=== PATIENT | female | born 1960 | race Caucasian/White ===

== ENCOUNTER 2016-05-04 11:02 | Emergency (ER) | payer MEDICAID, OTHER ==
[2016-05-04 11:14] VITALS: BMI 33.3
[2016-05-04 11:18] VITALS: O2SAT 98
--- NOTE | 2016-05-04 11:39 | C.PDOC ---
History Of Present Illness 55 y/o female is sent to the emergency department from her doctor's office for blood sugar "over 500." Patient states her only complaint is "dry mouth." She denies any abdominal pain, chest pain, shortness of breath, dizziness, fever, or other complaints. Patient is adamant she has been taking all her medications but states she has been in a very stressful situation at home. Time Seen by Provider: 05/04/16 11:35 Chief Complaint (Nursing): High Blood Sugar History Per: Patient History/Exam Limitations: no limitations Onset/Duration Of Symptoms: Unknown Current Symptoms Are (Timing): Still Present Recent travel outside of the [place]: No Past Medical History Reviewed: Historical Data, Nursing Documentation, Vital Signs Vital Signs: Last Vital Signs Temp 97.6 F 05/04/16 15:36 Pulse 63 05/04/16 15:36 Resp 16 05/04/16 15:36 BP 111/71 05/04/16 15:36 Pulse Ox 98 05/04/16 15:36 - Medical History PMH: Anxiety, Depression, Diabetes (type II), Hypercholesterolemia Surgical History: Cholecystectomy - [facility] Procedures GROUP PSYCHOTHERAPY (12/26/15) INDIVID PSYCHOTHERAP NEC (07/03/13) INDIVIDUAL PSYCHOTHERAPY, COGNITIVE-BEHAVIORAL (12/26/15) INJECT/INFUSE NEC (08/29/13) OTHER GROUP THERAPY (07/03/13) Family History: States: No Known Family Hx - Social History Hx Tobacco Use: No Hx Alcohol Use: No Hx Substance Use: No - Immunization History Hx Tetanus Toxoid Vaccination: No Hx Influenza Vaccination: No Hx Pneumococcal Vaccination: No Review Of Systems Except As Marked, All Systems Reviewed And Found Negative. Constitutional: Positive for: Other (blood sugar "over 500"). Negative for: Fever Cardiovascular: Negative for: Chest Pain Respiratory: Negative for: Shortness of Breath Gastrointestinal: Negative for: Abdominal Pain Neurological: Negative for: Dizziness Physical Exam - Physical Exam Appears: Non-toxic, No Acute Distress Skin: Normal Color, Warm, Dry Head: Atraumatic, Normacephalic Eye(s): bilateral: Normal Inspection, PERRL Neck: Normal ROM, Supple Chest: Symmetrical Cardiovascular: Rhythm Regular Respiratory: Normal Breath Sounds, No Rales, No Rhonchi, No Wheezing Gastrointestinal/Abdominal: Normal Exam, Soft, No Tenderness Back: Normal Inspection Extremity: Normal ROM, No Swelling Neurological/Psych: Oriented x3, Normal Speech, Normal Cognition ED Course And Treatment - Laboratory Results Result Diagrams: 05/04/16 12:08 05/04/16 12:08 O2 Sat by Pulse Oximetry: 98 (ra) Pulse Ox Interpretation: Normal Progress Note: On arrival to the emergency department patient's blood sugar registers over 400. Blood Work and Urinalysis were ordered. Patient treated with 8 units of Insulin and IV Fluids. Labs do not indicated DKA. Repeat testing of patient's blood sugar shows decrease to 204. On reevaluation patient is resting comfortably and in no acute distress. Continues to deny any complaints. Patient advised to follow up with PMD and return for any new or concerning symptoms. Disposition - Disposition Disposition: HOME/ ROUTINE Disposition Time: 15:24 Condition: IMPROVED Additional Instructions: Follow up with your PMD within 1-2 days. Return to ED if feel worse. Instructions: Diabetes Mellitus Type 1 in Adults (ED) - Clinical Impression Clinical Impression: Hyperglycemia - PA / REFUELER / Resident Statement MD/DO has reviewed & agrees with the documentation as recorded. - Scribe Statement The provider has reviewed the documentation as recorded by the Scribe (Dyan Farley) All medical record entries made by the Scribe were at my direction and personally dictated by me. I have reviewed the chart and agree that the record accurately reflects my personal performance of the history, physical exam, medical decision making, and the department course for this patient. I have also personally directed, reviewed, and agree with the discharge instructions and disposition.
[2016-05-04] MEDS ORDERED: Sodium Chloride 0.9% 1,000 ML IV STA ×2 (11:57→14:06)
[2016-05-04] MEDS ORDERED: Sodium Chloride 0.9% 1,000 ML ONE ×2 (12:07→14:14)
[2016-05-04 12:13] LABS: BASO % 0.8 % (0.0-2.0); EOS # 0.2 K/uL (0.0-0.7); LYMPH # 1.7 K/uL (1.0-4.3); LYMPH % 43.9 % (20.0-40.0); MEAN CELL VOLUME 80.3 fL (81.0-99.0); MEAN CORPUSCULAR HEMOGLOBIN 26.6 pg (27.0-31.0); MEAN CORPUSCULAR HGB CONC 33.1 g/dL (33.0-37.0); MEAN PLATELET VOLUME 8.5 fL (7.2-11.7); MONO # 0.3 K/uL (0.0-0.8); NRBC % 0.1 % (0.0-2.0); RED CELL DISTRIBUTION WIDTH 12.2 % (11.5-14.5); WHITE BLOOD COUNT 3.9 K/uL (4.8-10.8)
[2016-05-04 12:21] LABS: CHLORIDE 96 mmol/L (98-107); POTASSIUM 3.6 mmol/L (3.6-5.2); SODIUM 134 mmol/L (132-148)
[2016-05-04 12:23] LABS: ALB/GLOB RATIO 1.3 (1.0-2.1); ALKALINE PHOSPHATASE 120 U/L (38-126); AST/SGOT 18 U/L (14-36); BILIRUBIN,TOTAL 0.4 mg/dL (0.2-1.3); CARBON DIOXIDE 23 mmol/L (22-30); GFR AFRICAN-AMERICAN > 60; TOTAL PROTEIN 6.6 g/dL (6.3-8.3)
[2016-05-04 12:24] LABS: VENOUS BLOOD GAS BASE EXCESS -1.3 mmol/L (0.0-2.0); VENOUS BLOOD GAS PCO2 40 mmHg (40-60); VENOUS BLOOD PH 7.38 (7.32-7.43)
[2016-05-04 12:24] LABS: ALT/SGPT 20 U/L (9-52); BLOOD UREA NITROGEN 10 mg/dL (7-17); CALCIUM 9.1 mg/dl (8.6-10.4)
[2016-05-04 12:37] LABS: RBC URINE 2 /hpf (0-3); URINE BILIRUBIN NEGATIVE (NEGATIVE); URINE BLOOD NEGATIVE (NEGATIVE); URINE COLOR Straw (YELLOW); URINE GLUCOSE (UA) 3+ mg/dL (Normal); URINE KETONE NEGATIVE (NEGATIVE); URINE LEUKOCYTE ESTERASE NEG Leu/uL (Negative); URINE PROTEIN NEGATIVE (NEGATIVE); URINE UROBILINOGEN NORMAL mg/dL (0.2-1.0); WBC URINE 1 /hpf (0-5)
[2016-05-04 12:44] LABS: GLUCOSE,RANDOM 431 mg/dL (65-105)
[2016-05-04] MEDS ORDERED: (Novolin R) Insulin Human Regular 100 units/ml vial SC STA (12:46)
[2016-05-04] MEDS ORDERED: (Novolin R) Insulin Human Regular 100 units/ml vial ONE (13:02)
[2016-05-04 15:37] VITALS: BP 111/71; PULSE 63; RESP 16; TEMP 97.6
== END 2016-05-04 15:38 | disposition home or self-care (01) ==
LOC: C.ER 11:02
DX: E11.65 Type 2 diabetes mellitus with hyperglycemia (principal)
CPT/HCPCS: 80053; 81001; 82009; 82803; 82948; 85025; 96360; 96361; 99285; J7040

== ENCOUNTER 2016-09-08 20:53 | Emergency (ER) | payer MEDICAID, OTHER ==
[2016-09-08 20:53] VITALS: BMI 33.3
[2016-09-08 21:15] VITALS: RESP 18; O2SAT 96
[2016-09-08] MEDS ORDERED: (Novolin R) Insulin Human Regular 100 units/ml vial IV STA (21:44)
[2016-09-08] MEDS ORDERED: Sodium Chloride 0.9% 1,000 ML IV ONE (21:44)
[2016-09-08 22:04] LABS: BASO % 0.8 % (0.0-2.0); EOS # 0.2 K/uL (0.0-0.7); EOS % 4.7 % (0.0-4.0); HEMOGLOBIN 13.9 g/dL (11.0-16.0); LYMPH # 2.4 K/uL (1.0-4.3); LYMPH % 51.6 % (20.0-40.0); MEAN CELL VOLUME 81.7 fL (81.0-99.0); MEAN CORPUSCULAR HEMOGLOBIN 27.3 pg (27.0-31.0); MEAN CORPUSCULAR HGB CONC 33.4 g/dL (33.0-37.0); MONO # 0.4 K/uL (0.0-0.8); MONO % 8.1 % (0.0-10.0); NEUT # 1.6 K/uL (1.8-7.0); NEUT % 34.8 % (50.0-75.0); NRBC % 0.1 % (0.0-2.0); RBC 5.09 Mil/uL (3.80-5.20); RED CELL DISTRIBUTION WIDTH 12.7 % (11.5-14.5); WHITE BLOOD COUNT 4.7 K/uL (4.8-10.8)
[2016-09-08 22:07] LABS: SQUAMOUS EPITHIAL 1 /hpf (0-5); URINE BACTERIA RARE (<OCC); URINE BILIRUBIN NEGATIVE (NEGATIVE); URINE BLOOD NEGATIVE (NEGATIVE); URINE CLARITY Clear (Clear); URINE COLOR Straw (YELLOW); URINE GLUCOSE (UA) 3+ mg/dL (Normal); URINE LEUKOCYTE ESTERASE NEG Leu/uL (Negative); URINE NITRATE NEGATIVE (NEGATIVE); URINE PROTEIN NEGATIVE (NEGATIVE)
[2016-09-08] MEDS ORDERED: (Novolin R) Insulin Human Regular 100 units/ml vial ONE (22:10)
[2016-09-08] MEDS ORDERED: Sodium Chloride 0.9% 1,000 ML ONE (22:10)
[2016-09-08 22:12] LABS: ALBUMIN 3.4 g/dL (3.5-5.0)
[2016-09-08 22:15] LABS: ALB/GLOB RATIO 1.3 (1.0-2.1); ALT/SGPT 24 U/L (9-52); AST/SGOT 17 U/L (14-36); BLOOD UREA NITROGEN 15 mg/dL (7-17); GFR AFRICAN-AMERICAN > 60; GFR NON-AFRICAN AMERICAN > 60
[2016-09-08 22:16] LABS: CALCIUM 8.4 mg/dl (8.6-10.4)
--- NOTE | 2016-09-08 23:09 | C.PDOC ---
History Of Present Illness 55 year old female who presents to the ER with a complaint of feeling lethargic and tired. As per daughter, patient has poorly controlled blood sugar at home; she is requesting to have her mother placed on a new insulin regiment. Denies nausea, vomiting, diarrhea, SOB, or chest pain. Time Seen by Provider: 09/08/16 21:38 Chief Complaint (Nursing): Weakness/Neurological Deficit History Per: Patient History/Exam Limitations: no limitations Onset/Duration Of Symptoms: Hrs Current Symptoms Are (Timing): Still Present Activity At Onset Of Symptoms: Other (Not known) Seizure Or Post-ictal Symptoms: None Possible Causative Factor(s): Other (Uncontrolled diabetes) Fall Associated With With Symptoms: No Recent travel outside of the [place]: No - Symptoms Of CVA Associated Symptoms: denies: Impaired Speech, Seizure Activity, New Vision Deficit(Left), New Vision Deficit(Right), Decreased Ability To Walk, New Confusion Past Medical History Reviewed: Historical Data, Nursing Documentation, Vital Signs Vital Signs: Last Vital Signs Temp 98.4 F 09/08/16 23:23 Pulse 71 09/08/16 23:23 Resp 18 09/08/16 23:23 BP 104/72 09/08/16 23:23 Pulse Ox 96 09/08/16 23:24 - Medical History PMH: Anxiety, Depression, Diabetes (type II), HTN, Hypercholesterolemia Surgical History: Cholecystectomy - [facility] Procedures GROUP PSYCHOTHERAPY (12/26/15) INDIVID PSYCHOTHERAP NEC (07/03/13) INDIVIDUAL PSYCHOTHERAPY, COGNITIVE-BEHAVIORAL (12/26/15) INJECT/INFUSE NEC (08/29/13) OTHER GROUP THERAPY (07/03/13) Family History: States: Unknown Family Hx - Social History Hx Tobacco Use: No Hx Alcohol Use: No Hx Substance Use: No - Immunization History Hx Tetanus Toxoid Vaccination: No Hx Influenza Vaccination: No Hx Pneumococcal Vaccination: No Review Of Systems Constitutional: Positive for: Weakness, Other (Polydipsia). Negative for: Weight loss Cardiovascular: Negative for: Chest Pain Respiratory: Negative for: Shortness of Breath Gastrointestinal: Negative for: Nausea, Vomiting, Diarrhea Genitourinary: Positive for: Frequency Neurological: Negative for: Weakness, Numbness Physical Exam - Physical Exam Appears: Non-toxic, No Acute Distress Skin: Normal Color, Warm, Dry Head: Atraumatic, Normacephalic Oral Mucosa: Dry Chest: Symmetrical, No Tenderness Cardiovascular: Rhythm Regular, No Murmur Respiratory: Normal Breath Sounds, No Rales, No Rhonchi, No Wheezing Gastrointestinal/Abdominal: Soft, No Tenderness Neurological/Psych: Oriented x3, Normal Speech, Normal Cognition ED Course And Treatment - Laboratory Results Result Diagrams: 09/08/16 21:58 09/08/16 21:58 Lab Interpretation: Abnormal (hgb A1C 12.7 H, UA neg, ketones neg.) ECG: Interpreted By Me, Viewed By Me ECG Rhythm: Sinus Rhythm ECG Interpretation: Normal Rate From EC O2 Sat by Pulse Oximetry: 96 (Room air) Pulse Ox Interpretation: Normal Progress Note: insulin 10 IV and IVF's, recheck FS 169, pt feels better, hungry wants to eat, food permitted. Medical Decision Making Medical Decision Making: very poorly controlled DM A1C 12.7 c/w consistently elev glu approx 400's, explaining persistent polyuria polydypsia no sig weight loss Daughter @ bedside speaks for the pt pt with many pior overdoses, mental illness, and poor insight into her DM, and non-compliance with DM meds/regimen/diet is concerning. outpatient f/u with Dr. Gallegos Disposition Doctor Will See Patient In The: Office Counseled Patient/Family Regarding: Studies Performed, Diagnosis - Disposition Referrals: Kermit Gallegos DO [Staff Provider] - Disposition: HOME/ ROUTINE Disposition Time: 23:15 Condition: GOOD Additional Instructions: continue daily finger sticks and please adhere to a diabetic diet and insulin regimen Follow-up with Dr. Gallegos to consider medication changes Hgb A1C: 12.7 Instructions: Diabetes Mellitus Type 1 in Adults (ED) Forms: [email or web address] (Egyptian) - Clinical Impression Clinical Impression: Uncontrolled diabetes mellitus
[2016-09-08 23:23] VITALS: BP 104/72; PULSE 71; TEMP 98.4
--- NOTE | 2016-09-11 13:09 | CARD ---
APPROVED REPORT EKG Measurement Heart [id number] <Conclusion> Normal sinus rhythm Anteroseptal infarct, age undetermined Abnormal ECG
== END 2016-09-08 23:27 | disposition home or self-care (01) ==
LOC: C.ER 20:53
DX: E11.65 Type 2 diabetes mellitus with hyperglycemia (principal)
CPT/HCPCS: 80053; 81001; 82009; 82948; 83036; 85025; 93005; 96360; 99285; J7040

== ENCOUNTER 2016-09-25 09:37 | Emergency (ER) | payer OTHER ==
[2016-09-25 09:52] VITALS: BP 111/78; PULSE 75; RESP 18; TEMP 97.3; O2SAT 97
[2016-09-25 09:53] VITALS: BMI 32.3
--- NOTE | 2016-09-25 10:32 | C.PDOC ---
History Of Present Illness 55 y/o male presents to ED with complaints of new onset right foot pain since this morning. Patient states pain is at bottom of foot radiating to front of leg worse when touching, bearing weight and with flexion. Patient reports weight bearing and denies recent prolonged than usual walking or trauma. Patient denies numbness, weakness, tingling or any other complaints at this time. NEW ONSET R FOOT PAIN SINCE THIS MORNING. BOTTOM OF FOOT, RADIATION TO FRONT OF LEG. WORSE W FOOT FLEXION, WT BEAR. DENIES RECENT PROLONGED THAN USUAL WALKING, TRAUMA. PAIN WORSE W TOUCHING BOTTOM OF FOOT, WT BEAR. NO OTHER ASSOC SX EXAM MOD DIST NONTOXIC EXT R FOOT +TEND PLANTAR ARCH AREA. MIN LOCAL SWELL. NO JOINT TEND, SWELL. AROM MTP JOINT. SKIN NEG Time Seen by Provider: 09/25/16 10:26 Chief Complaint (Nursing): Lower Extremity Problem/Injury History Per: Patient History/Exam Limitations: no limitations Onset/Duration Of Symptoms: Days Current Symptoms Are (Timing): Still Present Past Medical History Reviewed: Historical Data, Nursing Documentation, Vital Signs Vital Signs: Last Vital Signs Temp 97.3 F L 09/25/16 09:51 Pulse 75 09/25/16 09:51 Resp 18 09/25/16 09:51 BP 111/78 09/25/16 09:51 Pulse Ox 97 09/25/16 10:36 - Medical History PMH: Anxiety, Depression, Diabetes (type II), HTN, Hypercholesterolemia Surgical History: Cholecystectomy - [facility] Procedures GROUP PSYCHOTHERAPY (12/26/15) INDIVID PSYCHOTHERAP NEC (07/03/13) INDIVIDUAL PSYCHOTHERAPY, COGNITIVE-BEHAVIORAL (12/26/15) INJECT/INFUSE NEC (08/29/13) OTHER GROUP THERAPY (07/03/13) Family History: States: No Known Family Hx - Social History Hx Tobacco Use: No Hx Alcohol Use: No Hx Substance Use: No - Immunization History Hx Tetanus Toxoid Vaccination: No Hx Influenza Vaccination: No Hx Pneumococcal Vaccination: No Review Of Systems Except As Marked, All Systems Reviewed And Found Negative. Musculoskeletal: Positive for: Leg Pain, Foot Pain Skin: Negative for: Rash Neurological: Negative for: Weakness, Numbness Physical Exam - Physical Exam Appears: Non-toxic, Other (Moderate distress) Skin: Normal Color, Warm, No Rash Extremity: Tenderness, Swelling (Minimal localized swelling), Other (No joint tenderness or swelling, AROM to MTP joint) ED Course And Treatment O2 Sat by Pulse Oximetry: 97 (RA) Pulse Ox Interpretation: Normal Disposition Counseled Patient/Family Regarding: Diagnosis, Need For Followup, Rx Given - Disposition [facility]errals[facility]Outside] [facility] [Outside] [facility]iat[facility] [Outside] Disposition: HOME/ ROUTINE Disposition Time: 10:36 Condition: IMPROVED Additional Instructions: There are many methods you can try to relieve the heel pain of plantar fasciitis. Even though their effectiveness has not been proved in scientific studies, these methods, used alone or in combination, work for most people.2 Rest your feet. Limit or, if possible, stop daily activities that are causing your heel pain. Try to avoid running or walking on hard surfaces, such as concrete. To reduce inflammation and relieve pain, put ice on your heel. You can also try a nonsteroidal anti-inflammatory drug (NSAID) such as ibuprofen (Advil or Motrin , for example) or naproxen (Aleve, for example). NSAIDs come in pills and in a cream that you rub over the sore area. Wear shoes with good shock absorption and the right arch support for your foot. Athletic shoes or shoes with a well-cushioned sole are usually good choices. Try heel cups or shoe inserts (orthotics [email or web address]) to help cushion your heel. You can buy these at many athletic shoe stores and drugstores. Use them in both shoes, even if only one foot hurts. Put on your shoes as soon as you get out of bed. Going barefoot or wearing slippers may make your pain worse. Do simple exercises such as toe stretches [email or web address], calf stretches [email or web address] , and towel stretches [email or web address] several times a day, especially when you first get up in the morning. These can help your ligament become more flexible and strengthen the muscles that support your arch. (For towel stretches, you pull on both ends of a rolled towel that you place under the ball of your foot.) Prescriptions: Acetaminophen [Tylenol Extra Strength] 2 tab PO Q6 #30 tablet Ibuprofen [Motrin] 600 mg PO Q6 #30 tab Instructions: Plantar Fasciitis (ED) Forms: [employer] (Belarusian) - Clinical Impression Clinical Impression: Plantar fasciitis - Scribe Statement The provider has reviewed the documentation as recorded by the Linnette Ramos All medical record entries made by the Deonibisai were at my direction and personally dictated by me. I have reviewed the chart and agree that the record accurately reflects my personal performance of the history, physical exam, medical decision making, and the department course for this patient. I have also personally directed, reviewed, and agree with the discharge instructions and disposition. Orthopedic Care - Ambulation Aids Ambulation Aids: Adult Crutches
== END 2016-09-25 11:10 | disposition home or self-care (01) ==
LOC: C.ER 09:37
DX: M72.2 Plantar fascial fibromatosis (principal)
CPT/HCPCS: 97116; 97161; 99283; G8978; G8979; G8980

== ENCOUNTER 2016-11-08 16:21 | Emergency (ER) | payer OTHER ==
[2016-11-08 16:22] VITALS: BMI 32.3
[2016-11-08 16:32] VITALS: BP 105/72; PULSE 90; RESP 20; TEMP 98.7; O2SAT 97
[2016-11-08] MEDS ORDERED: Amoxicillin-Clav 875-125 mg Tab PO STA (17:17)
[2016-11-08] MEDS ORDERED: Amoxicillin-Clav 875-125 mg Tab PO ONE (17:23)
--- NOTE | 2016-11-08 18:54 | C.PDOC ---
History Of Present Illness 56 y/o female presents to ED with right ear infection for "couple of days" and states fluid is coming out of ear. Patient reports she stuck toothpick to make it feel better and "did not work" and denies blood from ear. No other complaints at this time. Time Seen by Provider: 11/08/16 17:07 Chief Complaint (Nursing): ENT Problem History Per: Patient History/Exam Limitations: None Onset/Duration Of Symptoms: Days Current Symptoms Are (Timing): Still Present Past Medical History Reviewed: Historical Data, Nursing Documentation, Vital Signs Vital Signs: Last Vital Signs Temp 98.7 F 11/08/16 16:30 Pulse 90 11/08/16 16:30 Resp 20 11/08/16 16:30 BP 105/72 11/08/16 16:30 Pulse Ox 97 11/08/16 18:56 - Medical History PMH: Anxiety, Depression, Diabetes (type II), HTN, Hypercholesterolemia Surgical History: Cholecystectomy - [facility] Procedures GROUP PSYCHOTHERAPY (12/26/15) INDIVID PSYCHOTHERAP NEC (07/03/13) INDIVIDUAL PSYCHOTHERAPY, COGNITIVE-BEHAVIORAL (12/26/15) INJECT/INFUSE NEC (08/29/13) OTHER GROUP THERAPY (07/03/13) Family History: States: No Known Family Hx - Social History Hx Tobacco Use: No Hx Alcohol Use: No Hx Substance Use: No - Immunization History Hx Tetanus Toxoid Vaccination: No Hx Influenza Vaccination: No Hx Pneumococcal Vaccination: No Review Of Systems Except As Marked, All Systems Reviewed And Found Negative. Constitutional: Negative for: Fever, Chills ENT: Positive for: Ear Pain Cardiovascular: Negative for: Chest Pain Respiratory: Negative for: Shortness of Breath Gastrointestinal: Negative for: Nausea, Vomiting Skin: Negative for: Rash Physical Exam - Physical Exam Appears: Non-toxic, No Acute Distress Skin: Normal Color, Warm, Dry, No Rash Head: Atraumatic, Normacephalic Eye(s): bilateral: Normal Inspection Ear(s): Left: Normal, Right: TM Erythema, TM Dull, Other (Ear pain with tugging of pinna) Nose: Normal Oral Mucosa: Moist Throat: Normal, No Erythema Neck: Normal ROM, Supple Chest: Symmetrical Cardiovascular: Rhythm Regular Respiratory: Normal Breath Sounds, No Rales, No Rhonchi, No Wheezing Neurological/Psych: Oriented x3 ED Course And Treatment O2 Sat by Pulse Oximetry: 97 (RA) Pulse Ox Interpretation: Normal Disposition - Disposition Disposition: HOME/ ROUTINE Disposition Time: 17:15 Condition: GOOD Additional Instructions: Thank you for letting us take care of you today. Your provider was Dr. Saldivar. You were treated for an ear infection. The emergency medical care you received today was directed at your acute symptoms. If you were prescribed any medication, please fill it and take as directed. It may take several days for your symptoms to resolve. Return to the Emergency Department if your symptoms worsen, do not improve, or if you have any other problems. Please contact your doctor or call one of the physicians/clinics you have been referred to that are listed on the Patient Visit Information form that is included in your discharge packet. Bring any paperwork you were given at discharge with you along with any medications you are taking to your follow up visit. Our treatment cannot replace ongoing medical care by a primary care provider (PCP) outside of the emergency department. Thank you for allowing the [facility] team to be part of your care today. Follow up with your doctor in 2-3 days for re-evaluation and further management. Prescriptions: Amoxicillin/Clavulanate [Augmentin 875 MG-125 MG] 1 tab PO BID #14 tab Ibuprofen [Motrin] 600 mg PO Q6 PRN #20 tab PRN Reason: Pain, Moderate (4-7) Instructions: Otitis Media (ED) Forms: [employer] (Greenlandic) - Clinical Impression Clinical Impression: Otitis media, Otitis externa - Scribe Statement The provider has reviewed the documentation as recorded by the Linnette Ramos All medical record entries made by the Linnette were at my direction and personally dictated by me. I have reviewed the chart and agree that the record accurately reflects my personal performance of the history, physical exam, medical decision making, and the department course for this patient. I have also personally directed, reviewed, and agree with the discharge instructions and disposition.
== END 2016-11-08 17:24 | disposition home or self-care (01) ==
LOC: C.ER 16:21
DX: H60.91 Unspecified otitis externa, right ear (principal); H66.91 Otitis media, unspecified, right ear; Z87.891 Personal history of nicotine dependence

== ENCOUNTER 2016-12-22 16:13 | Emergency (ER) | payer OTHER ==
[2016-12-22 16:24] VITALS: BMI 27.3
[2016-12-22 16:38] VITALS: BP 121/80; PULSE 72; RESP 20; TEMP 97.8; O2SAT 96
[2016-12-22] MEDS ORDERED: Nystatin 100,000 Units/gm Cream(15 gm) TOP STA (16:48)
[2016-12-22 17:03] LABS: RBC URINE 10 /hpf (0-3); URINE BACTERIA OCC (<OCC); URINE BILIRUBIN NEGATIVE (NEGATIVE); URINE BLOOD 1+ (NEGATIVE); URINE COLOR Yellow (YELLOW); URINE GLUCOSE (UA) 3+ mg/dL (Normal); URINE KETONE TRACE mg/dL (NEGATIVE); URINE LEUKOCYTE ESTERASE 3+ Leu/uL (Negative); URINE PROTEIN NEGATIVE (NEGATIVE); URINE UROBILINOGEN NORMAL mg/dL (0.2-1.0); WBC URINE 43 /hpf (0-5)
--- NOTE | 2016-12-22 17:14 | C.PDOC ---
History Of Present Illness 56 year old female presents to the ED for evaluation of an itchy, burning rash to her genital area which began 3 days ago. Patient reports experiencing similar symptoms previously, states she had a fungal infection. Patient has tried using topical antibiotic cream without significant relief. She denies fever/chills, dysuria, vaginal discharge/bleeding, or abdominal pain. Time Seen by Provider: 12/22/16 16:28 Chief Complaint (Nursing): Female Genitourinary History Per: Patient History/Exam Limitations: no limitations Onset/Duration Of Symptoms: Days (3) Current Symptoms Are (Timing): Still Present Severity: Moderate Quality Of Discomfort: Burning, Other (itching ) Associated Symptoms: denies: Fever, Chills, Urinary Symptoms Additional History Per: Patient Past Medical History Reviewed: Historical Data, Nursing Documentation, Vital Signs Vital Signs: Last Vital Signs Temp 97.8 F 12/22/16 16:36 Pulse 72 12/22/16 16:36 Resp 20 12/22/16 16:36 BP 121/80 12/22/16 16:36 Pulse Ox 96 12/23/16 00:15 - Medical History PMH: Anxiety, Depression, Diabetes (type II), HTN, Hypercholesterolemia Surgical History: Cholecystectomy - [facility] Procedures GROUP PSYCHOTHERAPY (12/26/15) INDIVID PSYCHOTHERAP NEC (07/03/13) INDIVIDUAL PSYCHOTHERAPY, COGNITIVE-BEHAVIORAL (12/26/15) INJECT/INFUSE NEC (08/29/13) OTHER GROUP THERAPY (07/03/13) Family History: States: No Known Family Hx - Social History Hx Tobacco Use: No Hx Alcohol Use: No Hx Substance Use: No - Immunization History Hx Tetanus Toxoid Vaccination: No Hx Influenza Vaccination: No Hx Pneumococcal Vaccination: No Review Of Systems Except As Marked, All Systems Reviewed And Found Negative. Constitutional: Negative for: Fever, Chills Cardiovascular: Negative for: Chest Pain Respiratory: Negative for: Shortness of Breath Gastrointestinal: Negative for: Nausea, Vomiting, Abdominal Pain, Diarrhea Genitourinary: Negative for: Dysuria, Hematuria, Vaginal Discharge, Vaginal Bleeding Skin: Positive for: Rash (itchy, burning rash to genital area, extending to rectum ) Physical Exam - Physical Exam Appears: Well, Non-toxic, Other (mildly uncomfortable) Skin: Normal Color, Warm, Dry Oral Mucosa: Moist Neck: Supple Cardiovascular: Rhythm Regular, No Murmur Respiratory: Normal Breath Sounds, No Rales, No Rhonchi, No Wheezing Gastrointestinal/Abdominal: Normal Exam, Bowel Sounds, Soft, No Tenderness Pelvic: No Vaginal Discharge, Other (erythematous & raised well demarcated rash on vulva that extends into gluteal region. fungal in appearance, (+) mild labial swelling, no fluctuance/induration, no vesicular lesions. ) Extremity: Normal ROM Neurological/Psych: Oriented x3 Gait: Steady ED Course And Treatment O2 Sat by Pulse Oximetry: 96 (on RA) Pulse Ox Interpretation: Normal Progress Note: UA ordered and reviewed. Patient given PO Motrin and topical nystatin cream applied to area by nurse. She was given Rxs for Naprosyn and Nystatin, and instructed to follow up with PMD in 1-2 days. She understands she should return to ED if symptoms worsen. Disposition Counseled Patient/Family Regarding: Studies Performed, Diagnosis, Need For Followup, Rx Given - Disposition Referrals: Kermit Gallegos DO [Staff Provider] - Disposition: HOME/ ROUTINE Disposition Time: 17:30 Condition: STABLE Additional Instructions: FOLLOW UP WITH YOUR DOCTOR IN 1-2 DAYS USE MEDICATION DIRECTED RETURN TO EMERGENCY ROOM IF SYMPTOMS WORSEN Prescriptions: Naproxen 375 mg PO BID PRN #20 tablet PRN Reason: pain Nystatin [Mycostatin Cream] 1 appl TP TID #1 tube Instructions: Marcelo Itch (ED) Forms: [email or web address] (Icelandic) Print Language: SINHALA - POA Present On Arrival: None - Clinical Impression Clinical Impression: Tinea cruris - Scribe Statement The provider has reviewed the documentation as recorded by the Deonibe (Keyla Mart) Provider Attestation: All medical record entries made by the Deonibisai were at my direction and personally dictated by me. I have reviewed the chart and agree that the record accurately reflects my personal performance of the history, physical exam, medical decision making, and the department course for this patient. I have also personally directed, reviewed, and agree with the discharge instructions and disposition.
== END 2016-12-22 17:50 | disposition home or self-care (01) ==
LOC: C.ER 16:13
DX: B35.6 Tinea cruris (principal); E11.9 Type 2 diabetes mellitus without complications; E78.00 Pure hypercholesterolemia, unspecified; I10 Essential (primary) hypertension

== ENCOUNTER 2016-12-24 23:32 | Emergency (ER) | payer SELFPAY ==
[2016-12-24 23:32] VITALS: BMI 27.3
[2016-12-24 23:39] VITALS: BP 146/87; PULSE 89; RESP 16; TEMP 97.1; O2SAT 98
--- NOTE | 2016-12-25 00:40 | C.PDOC ---
History Of Present Illness 56 y/o female c/o vaginal itching that has been worsening over the past 2 days. Patient was seen in the ER 3 days ago for jock itch and was prescribed Nystatin cream with no relief but now pt states itching mostly to vaginal area. Denies vaginal discharge, dysuria, fever, chills, abdominal pain, or any other complaints. Time Seen by Provider: 12/24/16 23:56 Chief Complaint (Nursing): Abnormal Skin Integrity History Per: Patient History/Exam Limitations: no limitations Onset/Duration Of Symptoms: Days (2) Current Symptoms Are (Timing): Still Present Quality Of Symptoms: Itching Severity: Mild Recent travel outside of the [place]: No Additional History Per: Patient Past Medical History Reviewed: Historical Data, Nursing Documentation, Vital Signs Vital Signs: Last Vital Signs Temp 97.1 F L 12/24/16 23:37 Pulse 89 12/24/16 23:37 Resp 16 12/24/16 23:37 BP 146/87 12/24/16 23:37 Pulse Ox 98 12/25/16 04:32 - Medical History PMH: Anxiety, Depression, Diabetes (type II), HTN, Hypercholesterolemia Denies: Chronic Kidney Disease Surgical History: Cholecystectomy - [facility] Procedures GROUP PSYCHOTHERAPY (12/26/15) INDIVID PSYCHOTHERAP NEC (07/03/13) INDIVIDUAL PSYCHOTHERAPY, COGNITIVE-BEHAVIORAL (12/26/15) INJECT/INFUSE NEC (08/29/13) OTHER GROUP THERAPY (07/03/13) Family History: States: Unknown Family Hx - Social History Hx Tobacco Use: No Hx Alcohol Use: No Hx Substance Use: No - Immunization History Hx Tetanus Toxoid Vaccination: No Hx Influenza Vaccination: No Hx Pneumococcal Vaccination: No Review Of Systems Except As Marked, All Systems Reviewed And Found Negative. Constitutional: Negative for: Fever, Chills Gastrointestinal: Negative for: Abdominal Pain Genitourinary: Positive for: Other (Vaginal itching). Negative for: Dysuria Physical Exam - Physical Exam Appears: Non-toxic, No Acute Distress Skin: Warm, Dry Head: Atraumatic, Normacephalic Eye(s): bilateral: Normal Inspection Gastrointestinal/Abdominal: Normal Exam Pelvic: Other (No rash to the perineal area. Minimal swelling and erythema of the vulvovaginal area with minimal thick white discharge.) Neurological/Psych: Oriented x3 ED Course And Treatment O2 Sat by Pulse Oximetry: 98 (RA) Pulse Ox Interpretation: Normal Progress Note: Benadryl Po and Diflucan PO given. Patient is resting comfortably, and is in no acute distress. Patient was instructed to follow up with physician/clinic in 1-2 days for further evaluation. Disposition Counseled Patient/Family Regarding: Diagnosis, Need For Followup, Rx Given - Disposition Referrals: Kermit Gallegos DO [Staff Provider] - Disposition: HOME/ ROUTINE Disposition Time: 00:36 Condition: STABLE Additional Instructions: May continue benadryl for itching Return to ER if worse Prescriptions: DiphenhydrAMINE [Benadryl] 25 mg PO QID #14 cap Instructions: Vaginitis (ED) Forms: [email or web address] (Yi) Print Language: [email or web address] - Clinical Impression Clinical Impression: Vaginitis and vulvovaginitis - Scribe Statement The provider has reviewed the documentation as recorded by the Scribe Sarah albert All medical record entries made by the Scribe were at my direction and personally dictated by me. I have reviewed the chart and agree that the record accurately reflects my personal performance of the history, physical exam, medical decision making, and the department course for this patient. I have also personally directed, reviewed, and agree with the discharge instructions and disposition.
== END 2016-12-25 00:50 | disposition home or self-care (01) ==
LOC: C.ER 23:32
DX: N76.0 Acute vaginitis (principal)

== ENCOUNTER 2017-01-27 19:05 | Emergency (ER) | payer SELFPAY ==
[2017-01-27 19:06] VITALS: BMI 27.3
[2017-01-27 19:20] VITALS: BP 120/79; PULSE 92; RESP 18; TEMP 98.7; O2SAT 99
--- NOTE | 2017-01-27 19:59 | C.PDOC ---
History Of Present Illness Janay Mariano is a 56 year old female, with a past medical history of hypertension and diabetes, who presents to the emergency department complaining of vaginal itching onset for the ast x2 months. Patient reports she was seen here in ER and given Rx but with no improvement. She comes in here today because she can't tolerate the itching. She denies any pain, bleeding, abdominal pain or dysuria. No further medical complaints. PMD: Kermit Gallegos Time Seen by Provider: 01/27/17 19:35 Chief Complaint (Nursing): Female Genitourinary History Per: Patient History/Exam Limitations: no limitations Onset/Duration Of Symptoms: Days (x2 months) Current Symptoms Are (Timing): Still Present Pain Scale Rating Of: 0 Quality Of Discomfort: Other (itching) Associated Symptoms: denies: Urinary Symptoms, Other (abdominal pain) Past Medical History Reviewed: Historical Data, Nursing Documentation, Vital Signs Vital Signs: Last Vital Signs Temp 98.7 F 01/27/17 19:15 Pulse 92 H 01/27/17 19:15 Resp 18 01/27/17 19:15 BP 120/79 01/27/17 19:15 Pulse Ox 99 01/27/17 21:26 - Medical History PMH: Anxiety, Depression, Diabetes (type II), HTN, Hypercholesterolemia Denies: Chronic Kidney Disease Surgical History: Cholecystectomy - [facility] Procedures GROUP PSYCHOTHERAPY (12/26/15) INDIVID PSYCHOTHERAP NEC (07/03/13) INDIVIDUAL PSYCHOTHERAPY, COGNITIVE-BEHAVIORAL (12/26/15) INJECT/INFUSE NEC (08/29/13) OTHER GROUP THERAPY (07/03/13) Family History: States: Unknown Family Hx - Social History Hx Tobacco Use: No Hx Alcohol Use: No Hx Substance Use: No - Immunization History Hx Tetanus Toxoid Vaccination: No Hx Influenza Vaccination: No Hx Pneumococcal Vaccination: No Review Of Systems Except As Marked, All Systems Reviewed And Found Negative. Gastrointestinal: Negative for: Abdominal Pain Genitourinary: Positive for: Other (vaginal itching). Negative for: Dysuria, Vaginal Bleeding (or pain) Physical Exam - Physical Exam Appears: Well, No Acute Distress Skin: Normal Color, Warm, Dry Head: Atraumatic, Normacephalic Eye(s): bilateral: Normal Inspection, PERRL, EOMI Oral Mucosa: Moist Throat: Normal Neck: Normal, Normal ROM, Supple Cardiovascular: Rhythm Regular, No Friction Rub, No Murmur Respiratory: Normal Breath Sounds, No Accessory Muscle Use Gastrointestinal/Abdominal: Normal Exam, Soft, No Tenderness Back: Normal Inspection, No CVA Tenderness Pelvic: No Normal External Exam (excoriations and red irritation. ), No Vaginal Bleeding, Vaginal Discharge (white cottage cheese like), No Cervical Motion Tenderness, No Adnexal Tenderness, Other (Hand Cooper Helper: Ro LEZAMA) Extremity: Normal ROM, No Pedal Edema, No Deformity, No Swelling Neurological/Psych: Oriented x3, Normal Speech, Normal Motor Gait: Steady ED Course And Treatment O2 Sat by Pulse Oximetry: 99 (RA) Pulse Ox Interpretation: Normal Medical Decision Making Medical Decision Making: Initial Impression: vaginal itching Initial Plan: --Urine culture --HCG, Qualitative urine --Urinalysis UA is negative for UTI. Disposition - Disposition Referrals: Suni Fuentes MD [Staff Provider] - Disposition: HOME/ ROUTINE Disposition Time: 21:20 Condition: GOOD Additional Instructions: Follow up with the OBGYN within 1-2 days. return if worsened. Prescriptions: Fluconazole [Diflucan] 150 mg PO ONCE #2 tab hydrOXYzine HCl [Atarax] 25 mg PO Q6H #25 tab Instructions: Vulvovaginal Candidiasis (ED) Forms: [employer] (Mauritanian) - Clinical Impression Clinical Impression: Vulvovaginal candidiasis - Scribe Statement Mario Copeland All medical record entries made by the Scribe were at my direction and personally dictated by me. I have reviewed the chart and agree that the record accurately reflects my personal performance of the history, physical exam, medical decision making, and the department course for this patient. I have also personally directed, reviewed, and agree with the discharge instructions and disposition.
[2017-01-27 20:35] LABS: RBC URINE 9 /hpf (0-3); URINE BACTERIA RARE (<OCC); URINE BILIRUBIN NEGATIVE (NEGATIVE); URINE BLOOD 1+ (NEGATIVE); URINE COLOR Straw (YELLOW); URINE GLUCOSE (UA) 3+ mg/dL (Normal); URINE KETONE NEGATIVE (NEGATIVE); URINE LEUKOCYTE ESTERASE TRACE Leu/uL (Negative); URINE PROTEIN NEGATIVE (NEGATIVE); URINE UROBILINOGEN NORMAL mg/dL (0.2-1.0); WBC URINE 5 /hpf (0-5)
== END 2017-01-27 21:35 | disposition home or self-care (01) ==
LOC: SUPCPDRO 19:05 → C.ER 19:05
DX: B37.3 Candidiasis of vulva and vagina (principal)

== ENCOUNTER 2017-03-27 09:36 | Emergency (ER) | payer MEDICAID ==
[2017-03-27 10:09] VITALS: BMI 34.3
[2017-03-27 10:11] VITALS: TEMP 97.7
[2017-03-27] MEDS ORDERED: Naproxen 550 mg Tab PO STA (10:42)
[2017-03-27] MEDS ORDERED: Naproxen 550 mg Tab PO ONE (10:49)
--- NOTE | 2017-03-27 10:59 | C.PDOC ---
History Of Present Illness 56 year old female presents to the ER with a complaint of an initially itchy, now painful rash to the groin and buttock for the past 3 weeks. Patient states she used topical bacitracin, alcohol, and PO benadryl with no relief. Patient reports a Hx of diabetes and states she is complaint with her medications. Denies dysuria, fever, vaginal discharge, or vaginal bleeding. Time Seen by Provider: 03/27/17 10:21 Chief Complaint (Nursing): Female Genitourinary History Per: Patient History/Exam Limitations: no limitations Onset/Duration Of Symptoms: Days Current Symptoms Are (Timing): Still Present Quality Of Discomfort: "Pain" Recent travel outside of the [place]: No Abnormal Vaginal Bleeding: No Past Medical History Reviewed: Historical Data, Nursing Documentation, Vital Signs Vital Signs: Last Vital Signs Temp 97.7 F 03/27/17 10:09 Pulse 82 03/27/17 11:38 Resp 16 03/27/17 11:38 BP 138/85 03/27/17 11:38 Pulse Ox 98 03/27/17 11:38 - Medical History PMH: Anxiety, Depression, Diabetes (type II), HTN, Hypercholesterolemia Surgical History: Cholecystectomy - [facility] Procedures GROUP PSYCHOTHERAPY (12/26/15) INDIVID PSYCHOTHERAP NEC (07/03/13) INDIVIDUAL PSYCHOTHERAPY, COGNITIVE-BEHAVIORAL (12/26/15) INJECT/INFUSE NEC (08/29/13) OTHER GROUP THERAPY (07/03/13) Family History: States: Unknown Family Hx - Social History Hx Tobacco Use: No Hx Alcohol Use: No Hx Substance Use: No - Immunization History Hx Tetanus Toxoid Vaccination: No Hx Influenza Vaccination: No Hx Pneumococcal Vaccination: No Review Of Systems Except As Marked, All Systems Reviewed And Found Negative. Skin: Positive for: Rash (Painful to groin and buttock) Physical Exam - Physical Exam Appears: Non-toxic, Other (Uncomfortable) Skin: Warm, Dry Head: Atraumatic, Normacephalic Eye(s): bilateral: Normal Inspection Oral Mucosa: Moist Chest: Symmetrical, No Tenderness Cardiovascular: Rhythm Regular Respiratory: Normal Breath Sounds, No Rales, No Rhonchi, No Wheezing Gastrointestinal/Abdominal: Soft, No Tenderness Rectal: Other (Erythematous irritation to perianal, dry and scaly in appearance , well demarcated, non vesicular rash (fungal appearing)) Pelvic: Other (Erythematous irritation to labia, dry and scaly in appearance, well demarcated, non vesicular rash (fungal appearing)) Neurological/Psych: Oriented x3, Normal Speech ED Course And Treatment O2 Sat by Pulse Oximetry: 95 (Room air) Pulse Ox Interpretation: Normal Progress Note: Nystatin and naproxen administered. Patient instructed to follow up with PMD for further evaluation. Disposition Counseled Patient/Family Regarding: Diagnosis, Need For Followup, Rx Given - Disposition Referrals: [facility] [Outside] Disposition: HOME/ ROUTINE Disposition Time: 11:00 Condition: STABLE Additional Instructions: FOLLOW UP WITH YOUR DOCTOR OR CLINIC IN 1-2 DAYS USE MEDICATIONS DIRECTED KEEP AREA CLEAN AND DRY RETURN TO ER IF SYMPTOMS WORSEN Prescriptions: Naproxen 375 mg PO BID PRN #20 tablet PRN Reason: pain Nystatin [Mycostatin Cream] 1 appl TP TID #1 tube Instructions: Vulvovaginal Yeast Infection, Jock Itch (DC) Forms: [employer] (Urdu) Print Language: WOLOF - POA Present On Arrival: None - Clinical Impression Clinical Impression: Fungal infection of the groin - Scribe Statement The provider has reviewed the documentation as recorded by the Scribisai Olivera All medical record entries made by the Linnette were at my direction and personally dictated by me. I have reviewed the chart and agree that the record accurately reflects my personal performance of the history, physical exam, medical decision making, and the department course for this patient. I have also personally directed, reviewed, and agree with the discharge instructions and disposition.
[2017-03-27 11:38] VITALS: BP 138/85; PULSE 82; RESP 16
[2017-03-27 18:29] VITALS: O2SAT 95
== END 2017-03-27 11:38 | disposition home or self-care (01) ==
LOC: C.ER 09:36
DX: B35.6 Tinea cruris (principal)

== ENCOUNTER 2018-03-20 13:22 | Inpatient (IN) | payer MEDICAID, OTHER ==
[2018-03-20 13:22] VITALS: BMI 34.3
[2018-03-20 14:17] LABS: BASO % 1.4 % (0.0-2.0); EOS # 0.2 K/uL (0.0-0.7); EOS % 5.8 % (0.0-4.0); HEMOGLOBIN 14.2 g/dL (11.0-16.0); LYMPH # 1.8 K/uL (1.0-4.3); LYMPH % 53.2 % (20.0-40.0); MEAN CELL VOLUME 82.7 fL (81.0-99.0); MEAN CORPUSCULAR HEMOGLOBIN 27.2 pg (27.0-31.0); MEAN CORPUSCULAR HGB CONC 32.9 g/dL (33.0-37.0); MEAN PLATELET VOLUME 7.4 fL (7.2-11.7); MONO # 0.3 K/uL (0.0-0.8); MONO % 7.6 % (0.0-10.0); NEUT # 1.1 K/uL (1.8-7.0); NRBC % 0.1 % (0.0-2.0); RBC 5.21 Mil/uL (3.80-5.20); RED CELL DISTRIBUTION WIDTH 12.6 % (11.5-14.5); WHITE BLOOD COUNT 3.3 K/uL (4.8-10.8)
--- NOTE | 2018-03-20 14:28 | C.PDOC ---
History Of Present Illness 57 y/o female,w/PMhx of diabetes and HTN, presents to the ER complaining of non-radiating chest pain which has been present for the past 3 days. Patient states that she has mild shortness of breath. Patient denies having fever, chil ls, headache, dizziness, nausea, vomiting, and leg swelling. PMD: Time Seen by Provider: 03/20/18 14:02 Chief Complaint (Nursing): Chest Pain History Per: Patient History/Exam Limitations: no limitations Onset/Duration Of Symptoms: Days Current Symptoms Are (Timing): Still Present Severity: Moderate Past Medical History Reviewed: Historical Data, Nursing Documentation, Vital Signs Vital Signs: Last Vital Signs Temp 97.9 F 03/20/18 13:28 Pulse 104 H 03/20/18 13:28 Resp 22 03/20/18 13:28 BP 127/87 03/20/18 13:28 Pulse Ox 97 03/20/18 13:28 - Medical History PMH: Anxiety, Depression, Diabetes (type II), HTN, Hypercholesterolemia Denies: Chronic Kidney Disease Surgical History: Cholecystectomy - [facility] Procedures GROUP PSYCHOTHERAPY (12/26/15) INDIVID PSYCHOTHERAP NEC (07/03/13) INDIVIDUAL PSYCHOTHERAPY, COGNITIVE-BEHAVIORAL (12/26/15) INJECT/INFUSE NEC (08/29/13) OTHER GROUP THERAPY (07/03/13) Family History: States: No Known Family Hx - Social History Hx Tobacco Use: No Hx Alcohol Use: No Hx Substance Use: No - Immunization History Hx Tetanus Toxoid Vaccination: No Hx Influenza Vaccination: No Hx Pneumococcal Vaccination: No Review Of Systems Except As Marked, All Systems Reviewed And Found Negative. Constitutional: Negative for: Fever, Chills Cardiovascular: Positive for: Chest Pain Respiratory: Positive for: Shortness of Breath Gastrointestinal: Negative for: Nausea, Vomiting Physical Exam - Physical Exam Appears: Non-toxic, No Acute Distress Skin: Normal Color, Warm, Dry Head: Atraumatic, Normacephalic Eye(s): bilateral: Normal Inspection Nose: Normal Oral Mucosa: Moist Neck: Supple Chest: Symmetrical, Tenderness (reproducible tenderness) Cardiovascular: Rhythm Regular Respiratory: Normal Breath Sounds, No Rales, No Rhonchi, No Wheezing Gastrointestinal/Abdominal: Normal Exam, Soft, No Tenderness, No Guarding, No Rebound Neurological/Psych: Oriented x3, Normal Speech ED Course And Treatment - Laboratory Results Result Diagrams: 03/20/18 14:13 03/20/18 14:13 Lab Interpretation: No Acute Changes ECG: Interpreted By Me ECG Rhythm: Sinus Rhythm, Nonspecific Changes ECG Interpretation: No Acute Changes Rate From EC O2 Sat by Pulse Oximetry: 97 (RA) Pulse Ox Interpretation: Normal - Radiology CXR: Viewed By Me, Read By Radiologist - Other Rad No standard instances X-Ray: Viewed By Me, Read By Radiologist Interpretation: FINDINGS: LUNGS: No focal consolidation. Please note that chest x-ray has limited sensitivity for the detection of pulmonary masses. PLEURA: No significant pleural effusion identified. No definite pneumothorax . CARDIOVASCULAR: Heart size appears within normal limits. Ectatic aorta. Ather osclerotic calcifications of the aortic knob. OSSEOUS STRUCTURES: Degenerative changes. VISUALIZED UPPER ABDOMEN: Elevation/eventration of the right hemidiaphragm. OTHER FINDINGS: None. IMPRESSION: No focal consolidation. Progress Note: Treted with toradol 30 mg IV Medical Decision Making Medical Decision Making: Plan: --Labs --UA --EKG --CXR Disposition Discussed With .: Elma Alejandro Doctor Will See Patient In The: Hospital Counseled Patient/Family Regarding: Diagnosis - Disposition Disposition: HOSPITALIZED Disposition Time: 17:00 Condition: STABLE - POA Present On Arrival: None - Clinical Impression Clinical Impression: Chest pain - PA / GLOBE MOUNTER / Resident Statement MD/DO has reviewed & agrees with the documentation as recorded. - Scribe Statement The provider has reviewed the documentation as recorded by the Linnette Man Provider Attestation All medical record entries made by the Scribe were at my direction and personally dictated by me. I have reviewed the chart and agree that the record accurately reflects my personal performance of the history, physical exam, medical decision making, and the department course for this patient. I have also personally directed, reviewed, and agree with the discharge instructions and disposition. Decision To Admit - Pt Status Changed To: Hospital Disposition Of: Observation - InPatient: Physician Admission Certification: I certify that this patient requires 2 or more midnights of care for the following reason:: Chest Pain - . Bed Request Type: Telemetry Admitting Physician: Elma Alejandro Patient Diagnosis: Chest pain
[2018-03-20 14:34] LABS: ALB/GLOB RATIO 1.4 (1.0-2.1); ALBUMIN 4.1 g/dL (3.5-5.0); ALT/SGPT 16 U/L (9-52); AST/SGOT 22 U/L (14-36); BLOOD UREA NITROGEN 8 mg/dL (7-17); CALCIUM 9.2 mg/dl (8.6-10.4); GFR NON-AFRICAN AMERICAN > 60; LIPASE 39 U/L (23-300)
--- NOTE | 2018-03-20 14:36 | RAD ---
HISTORY: SOB COMPARISON: None available TECHNIQUE: Chest PA and lateral FINDINGS: LUNGS: No focal consolidation. Please note that chest x-ray has limited sensitivity for the detection of pulmonary masses. PLEURA: No significant pleural effusion identified. No definite pneumothorax . CARDIOVASCULAR: Heart size appears within normal limits. Ectatic aorta. Atherosclerotic calcifications of the aortic knob. OSSEOUS STRUCTURES: Degenerative changes. VISUALIZED UPPER ABDOMEN: Elevation/eventration of the right hemidiaphragm. OTHER FINDINGS: None. IMPRESSION: No focal consolidation.
[2018-03-20 14:46] LABS: CK-MB 0.41 ng/mL (0.0-3.38)
[2018-03-20 15:21] LABS: SQUAMOUS EPITHIAL 18 /hpf (0-5); URINE BACTERIA RARE (<OCC); URINE BILIRUBIN NEGATIVE (NEGATIVE); URINE BLOOD NEGATIVE (NEGATIVE); URINE CLARITY Hazy (Clear); URINE COLOR Yellow (YELLOW); URINE GLUCOSE (UA) 3+ mg/dL (Normal); URINE LEUKOCYTE ESTERASE 3+ Leu/uL (Negative); URINE PROTEIN NEGATIVE (NEGATIVE); URINE UROBILINOGEN NORMAL mg/dL (0.2-1.0)
--- NOTE | 2018-03-20 17:43 | CP.PCM.HP ---
History of Present Illness - History of Present Illness History of Present Illness: 57 y/o female,w/PMhx of diabetes and HTN, presents to the ER complaining of non-radiating chest pain which has been present for the past 3 days. Patient states that she has mild shortness of breath. Patient denies having fever, chills, headache, dizziness, nausea, vomiting, and leg swelling. Present on Admission - Present on Admission Any Indicators Present on Admission: No Past Patient History - Infectious Disease Hx of Infectious Diseases: None - Past Medical History & Family History Past Medical History?: Yes - Past Social History Smoking Status: Former Smoker - CARDIAC Hx Hypercholesterolemia: Yes Hx Hypertension: Yes - PULMONARY Hx Respiratory Disorders: No - NEUROLOGICAL Hx Neurological Disorder: No - HEENT Hx HEENT Problems: No - RENAL Hx Chronic Kidney Disease: No - ENDOCRINE/METABOLIC Hx Endocrine Disorders: Yes Hx Diabetes Mellitus Type 2: Yes - HEMATOLOGICAL/ONCOLOGICAL Hx Blood Disorders: No - INTEGUMENTARY Hx Dermatological Problems: No - MUSCULOSKELETAL/RHEUMATOLOGICAL Hx Musculoskeletal Disorders: No Hx Falls: No - GASTROINTESTINAL Hx Gastrointestinal Disorders: No - GENITOURINARY/GYNECOLOGICAL Hx Genitourinary Disorders: No - PSYCHIATRIC Hx Anxiety: Yes Hx Depression: Yes Hx Substance Use: No - SURGICAL HISTORY Hx Cholecystectomy: Yes - ANESTHESIA Hx Anesthesia: Yes Hx Anesthesia Reactions: No Meds Allergies/Adverse Reactions: Allergies Allergy/AdvReac Type Severity Reaction Status Date / Time No Known Allergies Allergy Verified 03/20/18 13:30 Physical Exam - Head Exam Head Exam: NORMAL INSPECTION - Eye Exam Eye Exam: Normal appearance - ENT Exam ENT Exam: Mucous Membranes Moist - Respiratory Exam Respiratory Exam: Clear to Auscultation Bilateral - Cardiovascular Exam Cardiovascular Exam: REGULAR RHYTHM, +S1, +S2 - GI/Abdominal Exam GI & Abdominal Exam: Normal Bowel Sounds - Extremities Exam Extremities exam: Positive for: normal inspection - Neurological Exam Neurological exam: Alert, Oriented x3 Results - Vital Signs Recent Vital Signs: Last Vital Signs Temp 98.2 F 03/20/18 16:58 Pulse 88 03/20/18 16:58 Resp 20 03/20/18 16:58 BP 132/84 03/20/18 16:58 Pulse Ox 99 03/20/18 16:58 - Labs Result Diagrams: 03/23/18 05:47 03/23/18 05:47 Labs: Laboratory Results - last 24 hr 0203/20/18 03/20/18 14:13 14:13 15:04 WBC 3.3 L RBC 5.21 H Hgb 14.2 Hct 43.1 MCV 82.7 MCH 27.2 MCHC 32.9 L RDW 12.6 Plt Count 230 MPV 7.4 Neut % (Auto) 32.0 L Lymph % (Auto) 53.2 H [place] % (Auto) 7.6 Eos % (Auto) 5.8 H Baso % (Auto) 1.4 Neut # (Auto) 1.1 L Lymph # (Auto) 1.8 [place] # (Auto) 0.3 Eos # (Auto) 0.2 Baso # (Auto) 0.0 Sodium 138 Potassium 4.2 Chloride 104 Carbon Dioxide 26 Anion Gap 12 BUN 8 Creatinine 0.7 Est GFR ( Amer) > 60 Est GFR (Non-Af Amer) > 60 Random Glucose 289 H D Calcium 9.2 Total Bilirubin 0.5 AST 22 ALT 16 Alkaline Phosphatase 92 CK-MB (Mass) 0.41 Troponin I 0.0920 Total Protein 6.9 Albumin 4.1 Globulin 2.9 Albumin/Globulin Ratio 1.4 Lipase 39 Urine Color Yellow Urine Clarity Hazy Urine pH 7.0 Ur Specific [place] 1.026 Urine Protein Negative Urine Glucose (UA) 3+ H Urine Ketones Negative Urine Blood Negative Urine Nitrate Negative Urine Bilirubin Negative Urine Urobilinogen Normal Ur Leukocyte Esterase 3+ H Urine WBC (Auto) 21 H Urine RBC (Auto) 10 H Ur Squamous Epith Cells 18 H Urine Bacteria Rare Assessment & Plan (1) Chest pain Status: Acute - Assessment and Plan (Free Text) 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
[2018-03-20] MEDS ORDERED: Dextrose 50% SYRINGE Inj (50 ml) IV PRN (17:50)
[2018-03-20] MEDS ORDERED: Glucagon Recombinant 1 mg Inj IM PRN (17:50)
[2018-03-20] MEDS: (Novolog) Insulin Aspart, Recombinant 100 u/ml 10 ml vial SC SCH (22:16)
[2018-03-20 22:48] LABS: CK-MB 0.39 ng/mL (0.0-3.38); TROPONIN I 0.14 ng/mL (0.00-0.120)
[2018-03-21 06:51] LABS: CK-MB 0.63 ng/mL (0.0-3.38)
[2018-03-21] MEDS: (Novolog) Insulin Aspart, Recombinant 100 u/ml 10 ml vial SC SCH ×4 (08:23→21:01)
[2018-03-21 08:57] LABS: TROPONIN I 0.176 ng/mL (0.00-0.120)
[2018-03-21] MEDS ORDERED: Enoxaparin 40 mg Syringe SC SCH (10:00)
[2018-03-21] MEDS ORDERED: Enoxaparin 80 mg Syringe SC SCH (10:00)
[2018-03-21] MEDS: Heparin25000 units/250ml 1/2NS 25,000 UNITS/250 ML BAG IV PRN (10:14)
[2018-03-21] MEDS ORDERED: Nitroglycerin 2% Ointment Foilpak UD TOP ONE (10:30)
[2018-03-21 11:08] LABS: BASO % 1.2 % (0.0-2.0); EOS # 0.3 K/uL (0.0-0.7); EOS % 6.9 % (0.0-4.0); HEMOGLOBIN 13.7 g/dL (11.0-16.0); LYMPH % 53.3 % (20.0-40.0); MEAN CELL VOLUME 83.9 fL (81.0-99.0); MEAN CORPUSCULAR HEMOGLOBIN 27.1 pg (27.0-31.0); MEAN CORPUSCULAR HGB CONC 32.3 g/dL (33.0-37.0); MEAN PLATELET VOLUME 8.3 fL (7.2-11.7); MONO # 0.3 K/uL (0.0-0.8); MONO % 8.7 % (0.0-10.0); NEUT # 1.1 K/uL (1.8-7.0); NEUT % 29.9 % (50.0-75.0); NRBC % 0.3 % (0.0-2.0); RBC 5.06 Mil/uL (3.80-5.20); RED CELL DISTRIBUTION WIDTH 12.6 % (11.5-14.5); WHITE BLOOD COUNT 3.7 K/uL (4.8-10.8)
--- NOTE | 2018-03-21 11:08 | CP.PCM.PN ---
Subjective - Date & Time of Evaluation Date of Evaluation: 03/21/18 Time of Evaluation: 06:20 - Subjective Subjective: Pt is a 57 yo female, with a PMH of DM and HTN, who presented to the emergency department complaining of non-radiating chest pain. Pt states this pain started 3 days ago while she was walking. Pt denies exercise intolerance, and this has never happened before. Pt states the pain has improved but she still feels it somewhat. Pt reports mild SOB but denies nausea or vomiting. Objective - Vital Signs/Intake and Output Vital Signs (last 24 hours): Temp Pulse Resp BP Pulse Ox 98.1 F 78 20 128/77 97 03/21/18 07:50 03/21/18 10:23 03/21/18 07:50 03/21/18 10:23 03/21/18 07:50 - Medications Medications: Current Medications Aspirin (Ecotrin) 81 mg PO DAILY [facility] Last Admin: 03/21/18 10:23 Dose: 81 mg Dextrose (Glutose 15) 0 gm PO ONCE PRN; Protocol PRN Reason: Hypoglycemia Protocol Dextrose (Dextrose 50% Inj) 0 ml IV STAT PRN; Protocol PRN Reason: Hypoglycemia Protocol Glucagon (Glucagen Diagnostic Kit) 0 mg IM STAT PRN; Protocol PRN Reason: Hypoglycemia Protocol Dextrose (Dextrose 5% In Water 1000 Ml) 1,000 mls @ 0 mls/hr IV .Q0M PRN; Protocol PRN Reason: Hypoglycemia Protocol Heparin Sodium/Sodium Chloride (Heparin 85315 Units/250ml 1/2 Normal Saline) 25,000 units in 250 mls @ 9.253 mls/hr IV .Q24H PRN; Protocol PRN Reason: PROTOCOL Last Admin: 03/21/18 10:14 Dose: 12 units/kg/hr, 9.253 mls/hr Insulin Aspart (Novolog) 0 unit SC ACHS ROBERT; Protocol Last Admin: 03/21/18 08:23 Dose: 3 u Metoprolol Tartrate (Lopressor) 25 mg PO BID ROBERT Last Admin: 03/21/18 10:24 Dose: Not Given Morphine Sulfate (Morphine) 2 mg IVP Q6 PRN PRN Reason: Pain, moderate (4-7) Last Admin: 03/21/18 06:09 Dose: 2 mg Ticagrelor (Brilinta) 180 mg PO ONCE ONE Stop: 03/21/18 10:51 Zolpidem Tartrate (Ambien) 5 mg PO HS PRN PRN Reason: Insomnia - Labs Labs: 03/20/18 14:13 03/20/18 14:13 - Constitutional Appears: No Acute Distress - Head Exam Head Exam: ATRAUMATIC, NORMOCEPHALIC - Eye Exam Eye Exam: EOMI - ENT Exam ENT Exam: Mucous Membranes Moist - Neck Exam Neck Exam: Full ROM - Respiratory Exam Respiratory Exam: Clear to Ausculation Bilateral, NORMAL BREATHING PATTERN - Cardiovascular Exam Cardiovascular Exam: RRR, +S1, +S2. absent: Diastolic murmur, Murmur - GI/Abdominal Exam GI & Abdominal Exam: Soft, Normal Bowel Sounds. absent: Tenderness - Extremities Exam Extremities Exam: Full ROM. absent: Calf Tenderness, Pedal Edema - Neurological Exam Neurological Exam: Alert, Awake, Oriented x3 - Psychiatric Exam Psychiatric exam: Normal Affect, Normal Mood - Skin Skin Exam: Dry, Normal Color, Warm Assessment and Plan - Assessment and Plan (Free Text) Assessment: NSTEMI ACS Chest pain DM Plan: NSTEMI Troponin: 0.092, 0.14, 0.176 EKG: shows no signs of ST or T wave abnormalities Cardiac Cath 2pm at [facility] Medications ASA Brilinta Lovenox 80mg Q12 Heprain 25,000 Metoprolol Pt seen, examined, assessment and plan discussed with Dr Iraj Jones PGY1, Internal Medicine Resident
[2018-03-21 11:25] LABS: ALB/GLOB RATIO 1.3 (1.0-2.1); ALBUMIN 3.6 g/dL (3.5-5.0); ALT/SGPT 20 U/L (9-52); AST/SGOT 26 U/L (14-36); BLOOD UREA NITROGEN 15 mg/dL (7-17); CALCIUM 8.7 mg/dl (8.6-10.4); GFR NON-AFRICAN AMERICAN > 60
[2018-03-21] MEDS ORDERED: (Novolog) Insulin Aspart, Recombinant 100 u/ml 10 ml vial SC ONE ×2 (11:30→13:00)
[2018-03-21 11:41] LABS: B-TYPE NATRIURETIC PEPTIDE 201 pg/mL (0-900)
[2018-03-21 12:14] LABS: D DIMER < 200 ng/mlDDU (0-243)
--- NOTE | 2018-03-21 12:27 | CP.PCM.CON ---
History of Present Illness - History of Present Illness History of Present Illness: Critical care consult note for Dr. Benavidez 57 F w/ PMHx of DM admitted to hospital for chest pain and dyspnea on exertion. Patient states she has had this pain intermittently for the past week with radiation to her R arm. 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 Patient scheduled for cardiac cath today w/ Dr. Galo in PM. In AM, patient began complaining of 1010 chest p ain. Following EKG/ trops/ nitropaste, patient remained clinically stable. EKG showed no changes acute ST changes. Patient continued to have chest pain, now 08/14. Patient transferred to ICU for further monitoring. Patient denies headaches, vision changes, arm pain, dysuria, hematuria. PMHx: IDDM PShx: None Allergies: None SHx: Denies smoking, drinking ETOH, Drug use Review of Systems - Constitutional Constitutional: absent: Chills, Night Sweats - EENT Eyes: absent: Diplopia, Irritation Nose/Mouth/Throat: absent: Mouth Pain - Cardiovascular Cardiovascular: Chest Pain, Chest Pain at Rest - Respiratory Respiratory: absent: Wheezing, Snoring, Stridor - Gastrointestinal Gastrointestinal: absent: Abdominal Pain, Hematochezia - Genitourinary Genitourinary: absent: Urinary Frequency, Urinary Hesitance - Musculoskeletal Musculoskeletal: absent: Joint Swelling, Muscle Weakness, Stiffness - Neurological Neurological: absent: Abnormal Hearing, Numbness, Headaches - Hematologic/Lymphatic Hematologic: absent: Easy Bleeding, Easy Bruising Past Patient History - Infectious Disease Hx of Infectious Diseases: None - Past Medical History & Family History Past Medical History?: Yes - Past Social History Smoking Status: Former Smoker - CARDIAC Hx Hypercholesterolemia: Yes Hx Hypertension: Yes - PULMONARY Hx Respiratory Disorders: No - NEUROLOGICAL Hx Neurological Disorder: No - HEENT Hx HEENT Problems: No - RENAL Hx Chronic Kidney Disease: No - ENDOCRINE/METABOLIC Hx Endocrine Disorders: Yes Hx Diabetes Mellitus Type 2: Yes - HEMATOLOGICAL/ONCOLOGICAL Hx Blood Disorders: No - INTEGUMENTARY Hx Dermatological Problems: No - MUSCULOSKELETAL/RHEUMATOLOGICAL Hx Musculoskeletal Disorders: No Hx Falls: No - GASTROINTESTINAL Hx Gastrointestinal Disorders: No - GENITOURINARY/GYNECOLOGICAL Hx Genitourinary Disorders: No - PSYCHIATRIC Hx Anxiety: Yes Hx Depression: Yes Hx Substance Use: No - SURGICAL HISTORY Hx Cholecystectomy: Yes - ANESTHESIA Hx Anesthesia: Yes Hx Anesthesia Reactions: No Meds Allergies/Adverse Reactions: Allergies Allergy/AdvReac Type Severity Reaction Status Date / Time No Known Allergies Allergy Verified 03/20/18 13:30 - Medications Medications: Current Medications Aspirin (Ecotrin) 81 mg PO DAILY [facility] Last Admin: 03/21/18 10:23 Dose: 81 mg Dextrose (Glutose 15) 0 gm PO ONCE PRN; Protocol PRN Reason: Hypoglycemia Protocol Dextrose (Dextrose 50% Inj) 0 ml IV STAT PRN; Protocol PRN Reason: Hypoglycemia Protocol Glucagon (Glucagen Diagnostic Kit) 0 mg IM STAT PRN; Protocol PRN Reason: Hypoglycemia Protocol Dextrose (Dextrose 5% In Water 1000 Ml) 1,000 mls @ 0 mls/hr IV .Q0M PRN; Protocol PRN Reason: Hypoglycemia Protocol Heparin Sodium/Sodium Chloride (Heparin 50095 Units/250ml 1/2 Normal Saline) 25,000 units in 250 mls @ 9.253 mls/hr IV .Q24H PRN; Protocol PRN Reason: PROTOCOL Last Admin: 03/21/18 10:14 Dose: 12 units/kg/hr, 9.253 mls/hr Ceftriaxone Sodium 1 gm/ (Sodium Chloride) 100 mls @ 100 mls/hr IVPB DAILY ROBERT; Protocol Insulin Aspart (Novolog) 0 unit SC ACHS ROBERT; Protocol Last Admin: 03/21/18 12:14 Dose: Not Given Insulin Aspart (Novolog) 3 unit SC ONCE ONE Stop: 03/21/18 11:31 Metoprolol Tartrate (Lopressor) 25 mg PO BID [facility] Last Admin: 03/21/18 10:24 Dose: Not Given Morphine Sulfate (Morphine) 2 mg IVP Q6 PRN PRN Reason: Pain, moderate (4-7) Last Admin: 03/21/18 06:09 Dose: 2 mg Ticagrelor (Brilinta) 90 mg PO Q12H ROBERT Zolpidem Tartrate (Ambien) 5 mg PO HS PRN PRN Reason: Insomnia Physical Exam - Constitutional Appears: Non-toxic, No Acute Distress - Head Exam Head Exam: NORMAL INSPECTION - Eye Exam Eye Exam: Normal appearance - ENT Exam ENT Exam: Mucous Membranes Moist - Respiratory Exam Respiratory Exam: Clear to Auscultation Bilateral, NORMAL BREATHING PATTERN. absent: Rhonchi, Wheezes - Cardiovascular Exam Cardiovascular Exam: +S1, +S2. absent: Systolic Murmur - GI/Abdominal Exam GI & Abdominal Exam: Normal Bowel Sounds, Soft - Extremities Exam Extremities exam: Negative for: calf tenderness, pedal edema - Neurological Exam Neurological exam: Alert, Oriented x3 - Psychiatric Exam Psychiatric exam: Normal Affect, Normal Mood - Skin Skin Exam: Dry, Normal Color, Warm Results - Vital Signs Recent Vital Signs: Last Vital Signs Temp 98.1 F 03/21/18 07:50 Pulse 69 03/21/18 11:51 Resp 20 03/21/18 11:51 BP 143/62 03/21/18 11:51 Pulse Ox 96 03/21/18 11:51 - Labs Result Diagrams: 03/21/18 11:01 03/21/18 11:01 Labs: Laboratory Results - last 24 hr 03/20/18 03/20/18 03/20/18 14:13 14:13 15:04 WBC 3.3 L RBC 5.21 H Hgb 14.2 Hct 43.1 MCV 82.7 MCH 27.2 MCHC 32.9 L RDW 12.6 Plt Count 230 MPV 7.4 Neut % (Auto) 32.0 L Lymph % (Auto) 53.2 H Clark % (Auto) 7.6 Eos % (Auto) 5.8 H Baso % (Auto) 1.4 Neut # (Auto) 1.1 L Lymph # (Auto) 1.8 Clark # (Auto) 0.3 Eos # (Auto) 0.2 Baso # (Auto) 0.0 D-Dimer, Quantitative Sodium 138 Potassium 4.2 Chloride 104 Carbon Dioxide 26 Anion Gap 12 BUN 8 Creatinine 0.7 Est GFR ( Amer) > 60 Est GFR (Non-Af Amer) > 60 Random Glucose 289 H D Calcium 9.2 Total Bilirubin 0.5 AST 22 ALT 16 Alkaline Phosphatase 92 Total Creatine Kinase CK-MB (Mass) 0.41 Troponin I 0.0920 NT-Pro-B Natriuret Pep Total Protein 6.9 Albumin 4.1 Globulin 2.9 Albumin/Globulin Ratio 1.4 Lipase 39 Urine Color Yellow Urine Clarity Hazy Urine pH 7.0 Ur Specific Ruston 1.026 Urine Protein Negative Urine Glucose (UA) 3+ H Urine Ketones Negative Urine Blood Negative Urine Nitrate Negative Urine Bilirubin Negative Urine Urobilinogen Normal Ur Leukocyte Esterase 3+ H Urine WBC (Auto) 21 H Urine RBC (Auto) 10 H Ur Squamous Epith Cells 18 H Urine Bacteria Rare 03/20/18 03/21/18 03/21/18 21:59 06:20 11:01 WBC 3.7 L RBC 5.06 Hgb 13.7 Hct 42.4 MCV 83.9 MCH 27.1 MCHC 32.3 L RDW 12.6 Plt Count 211 MPV 8.3 Neut % (Auto) 29.9 L Lymph % (Auto) 53.3 H Clark % (Auto) 8.7 Eos % (Auto) 6.9 H Baso % (Auto) 1.2 Neut # (Auto) 1.1 L Lymph # (Auto) 2.0 Clark # (Auto) 0.3 Eos # (Auto) 0.3 Baso # (Auto) 0.0 D-Dimer, Quantitative Sodium Potassium Chloride Carbon Dioxide Anion Gap BUN Creatinine Est GFR ( Amer) Est GFR (Non-Af Amer) Random Glucose Calcium Total Bilirubin AST ALT Alkaline Phosphatase Total Creatine Kinase 49 46 CK-MB (Mass) 0.39 0.63 Troponin I 0.1400 H* 0.1760 H* NT-Pro-B Natriuret Pep Total Protein Albumin Globulin Albumin/Globulin Ratio Lipase Urine Color Urine Clarity Urine pH Ur Specific Ruston Urine Protein Urine Glucose (UA) Urine Ketones Urine Blood Urine Nitrate Urine Bilirubin Urine Urobilinogen Ur Leukocyte Esterase Urine WBC (Auto) Urine RBC (Auto) Ur Squamous Epith Cells Urine Bacteria 03/21/18 03/21/18 11:01 11:44 WBC RBC Hgb Hct MCV MCH MCHC RDW Plt Count MPV Neut % (Auto) Lymph % (Auto) Clark % (Auto) Eos % (Auto) Baso % (Auto) Neut # (Auto) Lymph # (Auto) Clark # (Auto) Eos # (Auto) Baso # (Auto) D-Dimer, Quantitative < 200 Sodium 130 L Potassium 4.0 Chloride 104 Carbon Dioxide 22 Anion Gap 8 L BUN 15 Creatinine 0.6 L Est GFR ( Amer) > 60 Est GFR (Non-Af Amer) > 60 Random Glucose 334 H Calcium 8.7 Total Bilirubin 0.6 AST 26 ALT 20 Alkaline Phosphatase 83 Total Creatine Kinase 48 CK-MB (Mass) Troponin I 0.1660 H* NT-Pro-B Natriuret Pep 201 Total Protein 6.3 Albumin 3.6 Globulin 2.7 Albumin/Globulin Ratio 1.3 Lipase Urine Color Urine Clarity Urine pH Ur Specific Ruston Urine Protein Urine Glucose (UA) Urine Ketones Urine Blood Urine Nitrate Urine Bilirubin Urine Urobilinogen Ur Leukocyte Esterase Urine WBC (Auto) Urine RBC (Auto) Ur Squamous Epith Cells Urine Bacteria Assessment & Plan - Assessment and Plan (Free Text) Assessment: 57F w PMhx of DM, admitted for Chest pain, scheduled for cardaict cath, 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
[2018-03-21 12:58] LABS: BARBITURATES, UR NEGATIVE (NEGATIVE); BENZODIAZEPINES, UR NEGATIVE (NEGATIVE); PHENCYCLIDINE, UR NEGATIVE (NEGATIVE)
[2018-03-21 13:03] LABS: PROTHROMBIN TIME 11.4 SECONDS (9.7-12.2)
[2018-03-21 13:10] LABS: PARTIAL THROMBOPLASTIN TIME 201 SECONDS (21-34)
[2018-03-21 13:34] LABS: OPIATES, UR POSITIVE (NEGATIVE)
[2018-03-21] MEDS ORDERED: Verapamil 2 ML ONE (14:30)
--- NOTE | 2018-03-21 15:53 | PCM.RRT ---
<Oliverio Bahena - Last Filed: 03/21/18 15:47> [employer] Nurses Assessment - Situation Date: 03/21/18 Time [employer] was called: 10:37 [employer] Responder Arrival Time:: 10:37 [employer] Location:: Med/Surg Room Number: 664a [employer] [employer] Reason for Call: Chest Pain [employer] Called By: RN - IV IV Inserted during [employer]?: Yes - Respiratory [employer] Delivery Method: Nasal Cannula @L/min Oxygen Flow Rate: 2 Received Nebulizer Treatments: No Was the Patient Ventilated with Bag/Mask 100% O2?: No Secretions Suctioned?: No Was the Patient Intubated?: No Was the Patient Placed on a Ventilator?: No - Medication Medications Administered During [employer]: Morphine 2mg IVP. Nitropaste 1" - Diagnostic Test Ordered EKG: Yes Chest X-Ray: No CT Scan: No - Stat Labs Ordered [employer] Stat Labs Ordered: CBC, BMP, PT/PTT, TROPONIN CPR started during [employer]?: No - Vital Signs Vital Signs: Rapid Response Vital Sign Blood Pressure 146/83 Pulse Rate 70 Respiratory Rate 20 - Time [employer] Ended Time [employer] Ended: 10:58 - Vital Signs at end of [employer] Vital Signs at end of [employer]: Rapid Response End Vital Sign Blood Pressure 115/68 Pulse Rate 65 Respiratory Rate 20 O2 Sat by Pulse Oximetry 98 - Recommendations Notifications: Attending Physician, Consultations I.Reason for [employer] - A) Acute Change in Patient: Subjective: House doctor note [employer] called for patient at 10:37 Patient was complaining of acute onset, nonradiating left sided chest pain rated 7/10 in severity. Initial vital signs: HR 70, BP 146/83, RR 20, O2 sat: 92%. Patient was alert and oriented x 3, responding appropriately to questions, and following verbal commands. Morphine 2mg IVP x 1, Nitropaste x 1 were ordered and administered. CBC, VERA panel, coags, a d-dimer were obtained. Initial EKG demonstrated NSR at 61 bpm with possible anterior infarct (V2 &V3). UDS ordered given history of intentional overdose. ICU consulted for possible transfer. Dr. Galo made aware of event. Patient was given Heparin 4620 units IVP, Brillinta 180 mg PO x1, per cardio recs. Repeat EKG demonstrated NSR at 68 bpm, LAD, no acute st segment elevations. Vitals at end of [employer]: HR 65, BP 115/68, RR 20, O2 sat: 98%. Patient states chest pain improved after therapy, remained on tel emetry for further monitoring. - Neurological Status (Select all that apply): Alert, Responsive, Oriented, Verbal, Follows Commands - Respiratory Oxygen Delivery Method: Nasal Cannula @L/min Oxygen Flow Rate: 2 - Constitutional Appears: Non-toxic, In Acute Distress - Head Head Exam: ATRAUMATIC, NORMAL INSPECTION, NORMOCEPHALIC - Eyes Eye Exam: EOMI, Normal appearance, PERRL - Respiratory Exam Respiratory Exam: Clear to Ausculation Bilateral, NORMAL BREATHING PATTERN. absent: Accessory Muscle Use, Rales, Rhonchi, Wheezes, Respiratory Distress, Stridor - Cardiovascular Exam Cardiovascular Exam: REGULAR RHYTHM, +S1, +S2 - GI/Abdominal Exam GI & Abdominal Exam: Soft, Normal Bowel Sounds. absent: Distended, Firm, Guarding, Rigid, Tenderness, Rebound - Neurological Exam Neurological Exam: Alert, Awake, Oriented x3 - Extremities Exam Extremities Exam: Normal Capillary Refill, Normal Inspection. absent: Calf Tenderness, Pedal Edema <Faith Jordan V - Last Filed: 03/22/18 15:29> [employer] Nurses Assessment - Vital Signs Vital Signs: Rapid Response Vital Sign Blood Pressure 146/83 Pulse Rate 70 Respiratory Rate 20 - Vital Signs at end of [employer] Vital Signs at end of [employer]: Rapid Response End Vital Sign Blood Pressure 115/68 Pulse Rate 65 Respiratory Rate 20 O2 Sat by Pulse Oximetry 98 Attending/Attestation - Attestation I have personally seen and examined this patient.: Yes I have fully participated in the care of the patient.: Yes I have reviewed all pertinent clinical information, including history, physical exam and plan: Yes Notes (Text): This is a late computer entry for March 21, 2018. Patient seen, examined, case discussed with medical laboratory technician. Rapid response has been called for chest pain. Patient is a 57-year-old female who initially came in for chest pain noted for positive troponin there was a questionable EKG change involving V2 V3 concerning for possible upsloping. Nurse practitioner has called Dr. Bautista who is strategic marketing manager supersonic engineer for code heart patient does not meet criteria for "heart. Patient Chest pain best 7 out of 10 pain scale pressure has been on and off for the past 3 days but noticeably in pain today. Patient is being followed by Dr. Abbott is on consult. Patient has received morphine 2 mg IV x1 as well as an inch of Nitropaste. Chest pain has abated. Patient had already received aspirin, Brilinta, and placed by heparin drip by the nurse practitioner E. Blood work was collected at the rapid. Including no new cardiac enzyme and EKG. As well as d-dimer. And venous Dopplers given the patient also reported a prior history of leg cramps. Patient was reevaluated noted for chest pain. Did speak with evp and chief operating officer Dr. Boles in regards to events of the rapid an updated course. Patient was trans ferred to the unit for further monitoring and for possible IV nitro. At the time of the rapid both Dr. Bond and Dr. Herman Were informed of the events at the time of the rapid. Patient scheduled for potential cardiac cath later this afternoon per discussion with nurse practitioner covering PMD. Further management per PMD, cardiology, and intensive care.
--- NOTE | 2018-03-21 18:37 | CP.PCM.PN ---
Subjective - Date & Time of Evaluation Date of Evaluation: 03/21/18 Time of Evaluation: 18:36 - Subjective Subjective: Patient seen and examined Events noted Objective - Vital Signs/Intake and Output Vital Signs (last 24 hours): Temp Pulse Resp BP Pulse Ox 97.9 F 72 14 121/73 95 03/21/18 16:00 03/21/18 18:23 03/21/18 18:23 03/21/18 18:28 03/21/18 18:23 Intake and Output: 03/21/18 03/21/18 06:59 18:59 Intake Total 626.8 Output Total 200 Balance 426.8 - Medications Medications: Current Medications Aspirin (Ecotrin) 81 mg PO DAILY [facility] Last Admin: 03/21/18 10:23 Dose: 81 mg Dextrose (Glutose 15) 0 gm PO ONCE PRN; Protocol PRN Reason: Hypoglycemia Protocol Dextrose (Dextrose 50% Inj) 0 ml IV STAT PRN; Protocol PRN Reason: Hypoglycemia Protocol Glucagon (Glucagen Diagnostic Kit) 0 mg IM STAT PRN; Protocol PRN Reason: Hypoglycemia Protocol Dextrose (Dextrose 5% In Water 1000 Ml) 1,000 mls @ 0 mls/hr IV .Q0M PRN; Protocol PRN Reason: Hypoglycemia Protocol Heparin Sodium/Sodium Chloride (Heparin 38621 Units/250ml 1/2 Normal Saline) 25,000 units in 250 mls @ 9.253 mls/hr IV .Q24H PRN; Protocol PRN Reason: PROTOCOL Last Titration: 03/21/18 14:10 Dose: 9 units/kg/hr, 6.94 mls/hr Ceftriaxone Sodium 1 gm/ (Sodium Chloride) 100 mls @ 100 mls/hr IVPB DAILY ROBERT; Protocol Last Admin: 03/21/18 12:39 Dose: 100 mls/hr Insulin Aspart (Novolog) 0 unit SC ACHS ROBERT; Protocol Last Admin: 03/21/18 16:59 Dose: 3 u Metoprolol Tartrate (Lopressor) 25 mg PO BID [facility]ERT Last Admin: 03/21/18 18:28 Dose: 25 mg Morphine Sulfate (Morphine) 2 mg IVP Q6 PRN PRN Reason: Pain, moderate (4-7) Last Admin: 03/21/18 16:51 Dose: 2 mg Ticagrelor (Brilinta) 90 mg PO Q12H ROBERT Zolpidem Tartrate (Ambien) 5 mg PO HS PRN PRN Reason: Insomnia - Labs Labs: 03/21/18 11:01 03/21/18 11:01 PT 11.4 SECONDS (9.7-12.2) 03/21/18 11:44 INR 1.0 03/21/18 11:44 APTT 201 SECONDS (21-34) H* 03/21/18 11:44 Assessment and Plan (1) ACS (acute coronary syndrome) Status: Acute - Assessment and Plan (Free Text) Plan: IV heparin Beta-blockers Brilinta Accu-Chek Aspirin Beta-blockers Statins DVT/GI prophylaxis
--- NOTE | 2018-03-21 20:10 | CARD ---
APPROVED REPORT Date of service: 03/20/2018 EKG Measurement Heart [id number] ID [id number] <Conclusion> Normal sinus rhythm Possible Left atrial enlargement Left axis deviation Anteroseptal infarct, age undetermined Abnormal ECG
[2018-03-22 05:00] LABS: BASO % 1.1 % (0.0-2.0); EOS # 0.3 K/uL (0.0-0.7); HEMOGLOBIN 14.7 g/dL (11.0-16.0); LYMPH # 1.7 K/uL (1.0-4.3); LYMPH % 43.5 % (20.0-40.0); MEAN CORPUSCULAR HEMOGLOBIN 26.9 pg (27.0-31.0); MEAN CORPUSCULAR HGB CONC 32.4 g/dL (33.0-37.0); MEAN PLATELET VOLUME 7.8 fL (7.2-11.7); MONO # 0.3 K/uL (0.0-0.8); MONO % 8.8 % (0.0-10.0); NEUT # 1.5 K/uL (1.8-7.0); NEUT % 39.6 % (50.0-75.0); NRBC % 0.2 % (0.0-2.0); RBC 5.46 Mil/uL (3.80-5.20); RED CELL DISTRIBUTION WIDTH 12.5 % (11.5-14.5); WHITE BLOOD COUNT 3.8 K/uL (4.8-10.8)
[2018-03-22 05:05] LABS: ALB/GLOB RATIO 1.3 (1.0-2.1); ALBUMIN 3.9 g/dL (3.5-5.0); ALT/SGPT 16 U/L (9-52); AST/SGOT 21 U/L (14-36); BLOOD UREA NITROGEN 15 mg/dL (7-17); CALCIUM 9.2 mg/dl (8.6-10.4); GFR NON-AFRICAN AMERICAN > 60
--- NOTE | 2018-03-22 07:12 | CP.CCUPN ---
CCU Subjective - Physician Review Subjective (Free Text): Critical care progress note for Dr. Vidal. Patient seen and examined at bedside. No overnight events reported. Patient scheduled for cardiac cath today. In AM patient had no complaints. Denies chest pain, sOB, abdominal pain, nausea, vomiting. Post cath, patient had pressure like chest pain 5/10, mid sternal radiating to left arm. No SOB. CCU Objective - Vital Signs / Intake & Output Vital Signs (Last 4 hours): Vital Signs Temp Pulse Resp BP Pulse Ox 03/22/18 06:00 64 15 95 03/22/18 05:24 120/75 03/22/18 05:00 67 16 95 03/22/18 04:35 65 17 128/85 96 03/22/18 04:00 98.7 F 71 16 95 03/22/18 03:24 64 16 121/76 95 Intake and Output (Last 8hrs): Intake & Output 03/21/18 03/22/18 03/22/18 22:59 06:59 14:59 Intake Total 895.2 55.2 Output Total 750 600 Balance 145.2 -544.8 Weight 171 lb 15.369 oz 166 lb 3 oz Intake: Intake, IV Amount 55.2 55.2 Right Hand 55.2 55.2 Oral 840 Output: Urine 750 600 Urine, Voided 750 600 Other: # Bowel Movements 0 0 - Physical Exam Head: Positive for: Atraumatic, Normocephalic Extroacular Muscles: Positive for: EOMI Conjunctiva: Positive for: Normal Mouth: Positive for: Moist Mucous Membranes Neck: Positive for: Normal Range of Motion Respiratory/Chest: Positive for: Clear to Auscultation. Negative for: Accessory Muscle Use, Wheezes Cardiovascular: Positive for: Normal S1, S2 Abdomen: Negative for: Tenderness, Distention Upper Extremity: Positive for: Normal Inspection Lower Extremity: Negative for: Normal Inspection, Edema Neurological: Positive for: GCS=15 Skin: Positive for: Dry, Rashes, Normal Color Psychiatric: Positive for: Oriented x 3, Normal Insight - Medications Active Medications: Active Medications Generic Name Dose Route Start Last Admin Trade Name Freq PRN Reason Stop Dose Admin Aspirin 81 mg 03/21/18 10:00 03/21/18 10:23 Ecotrin PO 81 mg DAILY ROBERT Administration Dextrose 0 gm 03/20/18 17:50 Glutose 15 PO ONCE PRN Hypoglycemia Protocol Protocol Dextrose 0 ml 03/20/18 17:50 Dextrose 50% Inj IV STAT PRN Hypoglycemia Protocol Protocol Glucagon 0 mg 03/20/18 17:50 Glucagen Diagnostic Kit IM STAT PRN Hypoglycemia Protocol Protocol Dextrose 1,000 mls @ 0 mls/hr 03/20/18 17:50 Dextrose 5% In Water 1000 Ml IV .Q0M PRN Hypoglycemia Protocol Protocol Per Protocol Heparin Sodium/Sodium Chloride 25,000 units in 250 mls @ 9.253 mls/hr 03/21/18 10:00 03/21/18 14:10 Heparin 75342 Units/250ml 1/2 Normal Saline IV 9 units/kg/hr .Q24H PRN 6.94 mls/hr PROTOCOL Titration Protocol 12 UNITS/KG/HR Ceftriaxone Sodium 1 gm/ 100 mls @ 100 mls/hr 03/21/18 11:15 03/21/18 12:39 Sodium Chloride IVPB 100 mls/hr DAILY ROBERT Administration Protocol Insulin Aspart 0 unit 03/20/18 22:00 03/21/18 21:01 Novolog SC Not Given ACHS ROBERT Protocol Metoprolol Tartrate 25 mg 03/20/18 18:00 03/21/18 18:28 Lopressor PO 25 mg BID ROBERT Administration Morphine Sulfate 2 mg 03/20/18 22:57 03/21/18 16:51 Morphine IVP 2 mg Q6 PRN Administration Pain, moderate (4-7) Ticagrelor 90 mg 03/21/18 23:15 03/21/18 23:12 Brilinta PO 90 mg Q12H ROBERT Administration Zolpidem Tartrate 5 mg 03/20/18 18:10 03/21/18 22:01 Ambien PO 5 mg HS PRN Administration Insomnia - Patient Studies Lab Studies: Lab Studies 03/22/18 03/22/18 03/22/18 Range/Units 04:48 04:48 04:48 WBC 3.8 L (4.8-10.8) K/uL RBC 5.46 H (3.80-5.20) Mil/uL Hgb 14.7 (11.0-16.0) g/dL Hct 45.3 (34.0-47.0) % MCV 83.0 (81.0-99.0) fL MCH 26.9 L (27.0-31.0) pg MCHC 32.4 L (33.0-37.0) g/dL RDW 12.5 (11.5-14.5) % Plt Count 215 (130-400) K/uL MPV 7.8 (7.2-11.7) fL Neut % (Auto) 39.6 L (50.0-75.0) % Lymph % (Auto) 43.5 H (20.0-40.0) % Blaine % (Auto) 8.8 (0.0-10.0) % Eos % (Auto) 7.0 H (0.0-4.0) % Baso % (Auto) 1.1 (0.0-2.0) % Neut # (Auto) 1.5 L (1.8-7.0) K/uL Lymph # (Auto) 1.7 (1.0-4.3) K/uL Blaine # (Auto) 0.3 (0.0-0.8) K/uL Eos # (Auto) 0.3 (0.0-0.7) K/uL Baso # (Auto) 0.0 (0.0-0.2) K/uL PT (9.7-12.2) SECONDS INR APTT 57 H (21-34) SECONDS D-Dimer, Quantitative (0-243) ng/mlDDU Sodium 136 (132-148) mmol/L Potassium 4.2 (3.6-5.2) mmol/L Chloride 105 (98-107) mmol/L Carbon Dioxide 22 (22-30) mmol/L Anion Gap 14 (10-20) BUN 15 (7-17) mg/dL Creatinine 0.7 (0.7-1.2) mg/dL Est GFR ( Amer) > 60 Est GFR (Non-Af Amer) > 60 POC Glucose (mg/dL) (65-110) mg/dL Random Glucose 218 H D (65-105) mg/dL Calcium 9.2 (8.6-10.4) mg/dl Phosphorus 3.7 (2.5-4.5) mg/dL Magnesium 1.8 (1.6-2.3) mg/dL Total Bilirubin 0.6 (0.2-1.3) mg/dL AST 21 (14-36) U/L ALT 16 (9-52) U/L Alkaline Phosphatase 83 (38-126) U/L Total Creatine Kinase (30-135) U/L CK-MB (Mass) (0.0-3.38) ng/mL Troponin I (0.00-0.120) ng/mL NT-Pro-B Natriuret Pep (0-900) pg/mL Total Protein 6.8 (6.3-8.3) g/dL Albumin 3.9 (3.5-5.0) g/dL Globulin 3.0 (2.2-3.9) gm/dL Albumin/Globulin Ratio 1.3 (1.0-2.1) Urine Opiates Screen (NEGATIVE) Urine Methadone Screen (NEGATIVE) Ur Barbiturates Screen (NEGATIVE) Ur Phencyclidine Scrn (NEGATIVE) Ur Amphetamines Screen (NEGATIVE) U Benzodiazepines Scrn (NEGATIVE) U Oth Cocaine Metabols (NEGATIVE) U Cannabinoids Screen (NEGATIVE) 03/21/18 03/21/18 03/21/18 Range/Units 20:55 20:28 16:45 WBC (4.8-10.8) K/uL RBC (3.80-5.20) Mil/uL Hgb (11.0-16.0) g/dL Hct (34.0-47.0) % MCV (81.0-99.0) fL MCH (27.0-31.0) pg MCHC (33.0-37.0) g/dL RDW (11.5-14.5) % Plt Count (130-400) K/uL MPV (7.2-11.7) fL Neut % (Auto) (50.0-75.0) % Lymph % (Auto) (20.0-40.0) % Blaine % (Auto) (0.0-10.0) % Eos % (Auto) (0.0-4.0) % Baso % (Auto) (0.0-2.0) % Neut # (Auto) (1.8-7.0) K/uL Lymph # (Auto) (1.0-4.3) K/uL Blaine # (Auto) (0.0-0.8) K/uL Eos # (Auto) (0.0-0.7) K/uL Baso # (Auto) (0.0-0.2) K/uL PT (9.7-12.2) SECONDS INR APTT 59 H D (21-34) SECONDS D-Dimer, Quantitative (0-243) ng/mlDDU Sodium (132-148) mmol/L Potassium (3.6-5.2) mmol/L Chloride (98-107) mmol/L Carbon Dioxide (22-30) mmol/L Anion Gap (10-20) BUN (7-17) mg/dL Creatinine (0.7-1.2) mg/dL Est GFR ( Amer) Est GFR (Non-Af Amer) POC Glucose (mg/dL) 215 H 202 H (65-110) mg/dL Random Glucose (65-105) mg/dL Calcium (8.6-10.4) mg/dl Phosphorus (2.5-4.5) mg/dL Magnesium (1.6-2.3) mg/dL Total Bilirubin (0.2-1.3) mg/dL AST (14-36) U/L ALT (9-52) U/L Alkaline Phosphatase (38-126) U/L Total Creatine Kinase (30-135) U/L CK-MB (Mass) (0.0-3.38) ng/mL Troponin I (0.00-0.120) ng/mL NT-Pro-B Natriuret Pep (0-900) pg/mL Total Protein (6.3-8.3) g/dL Albumin (3.5-5.0) g/dL Globulin (2.2-3.9) gm/dL Albumin/Globulin Ratio (1.0-2.1) Urine Opiates Screen (NEGATIVE) Urine Methadone Screen (NEGATIVE) Ur Barbiturates Screen (NEGATIVE) Ur Phencyclidine Scrn (NEGATIVE) Ur Amphetamines Screen (NEGATIVE) U Benzodiazepines Scrn (NEGATIVE) U Oth Cocaine Metabols (NEGATIVE) U Cannabinoids Screen (NEGATIVE) 03/21/18 03/21/18 03/21/18 Range/Units 14:32 12:32 11:44 WBC (4.8-10.8) K/uL RBC (3.80-5.20) Mil/uL Hgb (11.0-16.0) g/dL Hct (34.0-47.0) % MCV (81.0-99.0) fL MCH (27.0-31.0) pg MCHC (33.0-37.0) g/dL RDW (11.5-14.5) % Plt Count (130-400) K/uL MPV (7.2-11.7) fL Neut % (Auto) (50.0-75.0) % Lymph % (Auto) (20.0-40.0) % Blaine % (Auto) (0.0-10.0) % Eos % (Auto) (0.0-4.0) % Baso % (Auto) (0.0-2.0) % Neut # (Auto) (1.8-7.0) K/uL Lymph # (Auto) (1.0-4.3) K/uL Blaine # (Auto) (0.0-0.8) K/uL Eos # (Auto) (0.0-0.7) K/uL Baso # (Auto) (0.0-0.2) K/uL PT 11.4 (9.7-12.2) SECONDS INR 1.0 APTT 201 H* (21-34) SECONDS D-Dimer, Quantitative < 200 (0-243) ng/mlDDU Sodium (132-148) mmol/L Potassium (3.6-5.2) mmol/L Chloride (98-107) mmol/L Carbon Dioxide (22-30) mmol/L Anion Gap (10-20) BUN (7-17) mg/dL Creatinine (0.7-1.2) mg/dL Est GFR ( Amer) Est GFR (Non-Af Amer) POC Glucose (mg/dL) 148 H (65-110) mg/dL Random Glucose (65-105) mg/dL Calcium (8.6-10.4) mg/dl Phosphorus (2.5-4.5) mg/dL Magnesium (1.6-2.3) mg/dL Total Bilirubin (0.2-1.3) mg/dL AST (14-36) U/L ALT (9-52) U/L Alkaline Phosphatase (38-126) U/L Total Creatine Kinase (30-135) U/L CK-MB (Mass) (0.0-3.38) ng/mL Troponin I (0.00-0.120) ng/mL NT-Pro-B Natriuret Pep (0-900) pg/mL Total Protein (6.3-8.3) g/dL Albumin (3.5-5.0) g/dL Globulin (2.2-3.9) gm/dL Albumin/Globulin Ratio (1.0-2.1) Urine Opiates Screen Positive H (NEGATIVE) Urine Methadone Screen Negative (NEGATIVE) Ur Barbiturates Screen Negative (NEGATIVE) Ur Phencyclidine Scrn Negative (NEGATIVE) Ur Amphetamines Screen Negative (NEGATIVE) U Benzodiazepines Scrn Negative (NEGATIVE) U Oth Cocaine Metabols Negative (NEGATIVE) U Cannabinoids Screen Negative (NEGATIVE) 03/21/18 03/21/18 03/21/18 Range/Units 11:01 11:01 06:20 WBC 3.7 L (4.8-10.8) K/uL RBC 5.06 (3.80-5.20) Mil/uL Hgb 13.7 (11.0-16.0) g/dL Hct 42.4 (34.0-47.0) % MCV 83.9 (81.0-99.0) fL MCH 27.1 (27.0-31.0) pg MCHC 32.3 L (33.0-37.0) g/dL RDW 12.6 (11.5-14.5) % Plt Count 211 (130-400) K/uL MPV 8.3 (7.2-11.7) fL Neut % (Auto) 29.9 L (50.0-75.0) % Lymph % (Auto) 53.3 H (20.0-40.0) % Blaine % (Auto) 8.7 (0.0-10.0) % Eos % (Auto) 6.9 H (0.0-4.0) % Baso % (Auto) 1.2 (0.0-2.0) % Neut # (Auto) 1.1 L (1.8-7.0) K/uL Lymph # (Auto) 2.0 (1.0-4.3) K/uL Blaine # (Auto) 0.3 (0.0-0.8) K/uL Eos # (Auto) 0.3 (0.0-0.7) K/uL Baso # (Auto) 0.0 (0.0-0.2) K/uL PT (9.7-12.2) SECONDS INR APTT (21-34) SECONDS D-Dimer, Quantitative (0-243) ng/mlDDU Sodium 130 L (132-148) mmol/L Potassium 4.0 (3.6-5.2) mmol/L Chloride 104 (98-107) mmol/L Carbon Dioxide 22 (22-30) mmol/L Anion Gap 8 L (10-20) BUN 15 (7-17) mg/dL Creatinine 0.6 L (0.7-1.2) mg/dL Est GFR ( Amer) > 60 Est GFR (Non-Af Amer) > 60 POC Glucose (mg/dL) (65-110) mg/dL Random Glucose 334 H (65-105) mg/dL Calcium 8.7 (8.6-10.4) mg/dl Phosphorus (2.5-4.5) mg/dL Magnesium (1.6-2.3) mg/dL Total Bilirubin 0.6 (0.2-1.3) mg/dL AST 26 (14-36) U/L ALT 20 (9-52) U/L Alkaline Phosphatase 83 (38-126) U/L Total Creatine Kinase 48 (30-135) U/L CK-MB (Mass) 0.70 (0.0-3.38) ng/mL Troponin I 0.1660 H* 0.1760 H* (0.00-0.120) ng/mL NT-Pro-B Natriuret Pep 201 (0-900) pg/mL Total Protein 6.3 (6.3-8.3) g/dL Albumin 3.6 (3.5-5.0) g/dL Globulin 2.7 (2.2-3.9) gm/dL Albumin/Globulin Ratio 1.3 (1.0-2.1) Urine Opiates Screen (NEGATIVE) Urine Methadone Screen (NEGATIVE) Ur Barbiturates Screen (NEGATIVE) Ur Phencyclidine Scrn (NEGATIVE) Ur Amphetamines Screen (NEGATIVE) U Benzodiazepines Scrn (NEGATIVE) U Oth Cocaine Metabols (NEGATIVE) U Cannabinoids Screen (NEGATIVE) Laboratory Results - last 24 hr 03/21/18 03/21/18 03/21/18 06:20 11:01 11:01 WBC 3.7 L RBC 5.06 Hgb 13.7 Hct 42.4 MCV 83.9 MCH 27.1 MCHC 32.3 L RDW 12.6 Plt Count 211 MPV 8.3 Neut % (Auto) 29.9 L Lymph % (Auto) 53.3 H Blaine % (Auto) 8.7 Eos % (Auto) 6.9 H Baso % (Auto) 1.2 Neut # (Auto) 1.1 L Lymph # (Auto) 2.0 Blaine # (Auto) 0.3 Eos # (Auto) 0.3 Baso # (Auto) 0.0 PT INR APTT D-Dimer, Quantitative Sodium 130 L Potassium 4.0 Chloride 104 Carbon Dioxide 22 Anion Gap 8 L BUN 15 Creatinine 0.6 L Est GFR ( Amer) > 60 Est GFR (Non-Af Amer) > 60 POC Glucose (mg/dL) Random Glucose 334 H Calcium 8.7 Phosphorus Magnesium Total Bilirubin 0.6 AST 26 ALT 20 Alkaline Phosphatase 83 Total Creatine Kinase 48 CK-MB (Mass) 0.70 Troponin I 0.1760 H* 0.1660 H* NT-Pro-B Natriuret Pep 201 Total Protein 6.3 Albumin 3.6 Globulin 2.7 Albumin/Globulin Ratio 1.3 Urine Opiates Screen Urine Methadone Screen Ur Barbiturates Screen Ur Phencyclidine Scrn Ur Amphetamines Screen U Benzodiazepines Scrn U Oth Cocaine Metabols U Cannabinoids Screen 03/21/18 03/21/18 03/21/18 11:44 12:32 14:32 WBC RBC Hgb Hct MCV MCH MCHC RDW Plt Count MPV Neut % (Auto) Lymph % (Auto) Blaine % (Auto) Eos % (Auto) Baso % (Auto) Neut # (Auto) Lymph # (Auto) Blaine # (Auto) Eos # (Auto) Baso # (Auto) PT 11.4 INR 1.0 APTT 201 H* D-Dimer, Quantitative < 200 Sodium Potassium Chloride Carbon Dioxide Anion Gap BUN Creatinine Est GFR ( Amer) Est GFR (Non-Af Amer) POC Glucose (mg/dL) 148 H Random Glucose Calcium Phosphorus Magnesium Total Bilirubin AST ALT Alkaline Phosphatase Total Creatine Kinase CK-MB (Mass) Troponin I NT-Pro-B Natriuret Pep Total Protein Albumin Globulin Albumin/Globulin Ratio Urine Opiates Screen Positive H Urine Methadone Screen Negative Ur Barbiturates Screen Negative Ur Phencyclidine Scrn Negative Ur Amphetamines Screen Negative U Benzodiazepines Scrn Negative U Oth Cocaine Metabols Negative U Cannabinoids Screen Negative 03/21/18 03/21/18 03/21/18 16:45 20:28 20:55 WBC RBC Hgb Hct MCV MCH MCHC RDW Plt Count MPV Neut % (Auto) Lymph % (Auto) Blaine % (Auto) Eos % (Auto) Baso % (Auto) Neut # (Auto) Lymph # (Auto) Blaine # (Auto) Eos # (Auto) Baso # (Auto) PT INR APTT 59 H D D-Dimer, Quantitative Sodium Potassium Chloride Carbon Dioxide Anion Gap BUN Creatinine Est GFR ( Amer) Est GFR (Non-Af Amer) POC Glucose (mg/dL) 202 H 215 H Random Glucose Calcium Phosphorus Magnesium Total Bilirubin AST ALT Alkaline Phosphatase Total Creatine Kinase CK-MB (Mass) Troponin I NT-Pro-B Natriuret Pep Total Protein Albumin Globulin Albumin/Globulin Ratio Urine Opiates Screen Urine Methadone Screen Ur Barbiturates Screen Ur Phencyclidine Scrn Ur Amphetamines Screen U Benzodiazepines Scrn U Oth Cocaine Metabols U Cannabinoids Screen 03/22/18 03/22/18 03/22/18 04:48 04:48 04:48 WBC 3.8 L RBC 5.46 H Hgb 14.7 Hct 45.3 MCV 83.0 MCH 26.9 L MCHC 32.4 L RDW 12.5 Plt Count 215 MPV 7.8 Neut % (Auto) 39.6 L Lymph % (Auto) 43.5 H Blaine % (Auto) 8.8 Eos % (Auto) 7.0 H Baso % (Auto) 1.1 Neut # (Auto) 1.5 L Lymph # (Auto) 1.7 Blaine # (Auto) 0.3 Eos # (Auto) 0.3 Baso # (Auto) 0.0 PT INR APTT 57 H D-Dimer, Quantitative Sodium 136 Potassium 4.2 Chloride 105 Carbon Dioxide 22 Anion Gap 14 BUN 15 Creatinine 0.7 Est GFR ( Amer) > 60 Est GFR (Non-Af Amer) > 60 POC Glucose (mg/dL) Random Glucose 218 H D Calcium 9.2 Phosphorus 3.7 Magnesium 1.8 Total Bilirubin 0.6 AST 21 ALT 16 Alkaline Phosphatase 83 Total Creatine Kinase CK-MB (Mass) Troponin I NT-Pro-B Natriuret Pep Total Protein 6.8 Albumin 3.9 Globulin 3.0 Albumin/Globulin Ratio 1.3 Urine Opiates Screen Urine Methadone Screen Ur Barbiturates Screen Ur Phencyclidine Scrn Ur Amphetamines Screen U Benzodiazepines Scrn U Oth Cocaine Metabols U Cannabinoids Screen EKG/Cardiology Studies: Cardiology / EKG Studies 03/21/18 09:15 EKG [ELECTROCARDIOGRAM] Stat Comment: Mode Of Transportation: PORTABLE Reason For Exam: troponin up 03/21/18 10:42 EKG [ELECTROCARDIOGRAM] Stat Comment: Mode Of Transportation: Reason For Exam: EKG changes, r/o FL Fingerstick Blood Sugar Results: 217 Review of Systems - Constitutional Constitutional: absent: Fever, Chills, Sweats - EENT Eyes: UNREMARKABLE Ears: UNREMARKABLE Nose/Mouth/Throat: UNREMARKABLE. absent: Nasal Trauma, Sinus Pressure - Cardiovascular Cardiovascular: Chest Pain, Chest Pain at Rest - Respiratory Respiratory: UNREMARKABLE. absent: Dyspnea, Snoring - Gastrointestinal Gastrointestinal: Abdominal Pain, UNREMARKABLE. absent: Bloating, Cramping, Diarrhea - Genitourinary Genitourinary: UNREMARKABLE. absent: Change in Urinary Stream, Pyuria - Integumentary Integumentary: UNREMARKABLE - Neurological Neurological: UNREMARKABLE - Psychiatric Psychiatric: Anxiety - Endocrine Endocrine: UNREMARKABLE Critical Care Progress Note - Prophylaxis GI Prophylaxis GI: Pepsid - Prophylaxis DVT Prophylaxis DVT: Heparin SQ, SCDs - Nutrition Nutrition: Nutrition Category Date Time Status NPO Diet [DIET] Diets 03/22/18 Breakfast Active Assessment/Plan - Assessment and Plan (Free Text) Assessment: 57F w PMhx of DM, admitted for Chest pain, found to have triple vessel disease, will require CABG, likely Sunday/Sunday/ w. Dr. Whitten at [facility]. Plan: Neuo - A&O X3 Cardio - Per cardio Dr. Galo - Resume heparin drip post cardiac cath approx 6:30PM - Hold Brilinta - C/w aspirin 81 daily, metorpolol tartrate 25 mg PO BID, Brilinta 90 BID - vitals stable WNL Pulm - CXR (03/20): No focal consolidation - vitals WNL GI - Diabetic diet Renal - BUN/Cr - wnl, continue to monitor Endo - HgbA1c: 12s - BS in 150s - 400s - ISS ACHS - Accuchecks ACHS - producing urine ID - afebrile, WBC normal - UA: 3+ leuk esterase, WBC 21 - ceftriaxone 1g daily PPx - DVT: on heparin drip, SCDs - GI: Pepcid 20mg daily
[2018-03-22] MEDS: (Novolog) Insulin Aspart, Recombinant 100 u/ml 10 ml vial SC SCH ×4 (07:45→21:17)
--- NOTE | 2018-03-22 10:58 | CP.PCM.PN ---
Subjective - Date & Time of Evaluation Date of Evaluation: 03/22/18 Time of Evaluation: 08:20 - Subjective Subjective: Pt seen and examined this morning in the ICU. Pt reports her symptoms are improving. Objective - Vital Signs/Intake and Output Vital Signs (last 24 hours): Temp Pulse Resp BP Pulse Ox 98.5 F 87 16 128/79 96 03/22/18 08:00 03/22/18 10:00 03/22/18 10:00 03/22/18 09:24 03/22/18 10:00 Intake and Output: 03/22/18 03/22/18 06:59 18:59 Intake Total 422.8 127.6 Output Total 1150 500 Balance -727.2 -372.4 - Medications Medications: Current Medications Aspirin (Ecotrin) 81 mg PO DAILY ROBERT Last Admin: 03/22/18 09:11 Dose: 81 mg Dextrose (Glutose 15) 0 gm PO ONCE PRN; Protocol PRN Reason: Hypoglycemia Protocol Dextrose (Dextrose 50% Inj) 0 ml IV STAT PRN; Protocol PRN Reason: Hypoglycemia Protocol Glucagon (Glucagen Diagnostic Kit) 0 mg IM STAT PRN; Protocol PRN Reason: Hypoglycemia Protocol Dextrose (Dextrose 5% In Water 1000 Ml) 1,000 mls @ 0 mls/hr IV .Q0M PRN; Protocol PRN Reason: Hypoglycemia Protocol Heparin Sodium/Sodium Chloride (Heparin 05549 Units/250ml 1/2 Normal Saline) 25,000 units in 250 mls @ 9.253 mls/hr IV .Q24H PRN; Protocol PRN Reason: PROTOCOL Last Titration: 03/21/18 14:10 Dose: 9 units/kg/hr, 6.94 mls/hr Ceftriaxone Sodium 1 gm/ (Sodium Chloride) 100 mls @ 100 mls/hr IVPB DAILY ROBERT; Protocol Last Admin: 03/22/18 09:11 Dose: 100 mls/hr Dextrose/Sodium Chloride (Dextrose 5%/0.45% Ns 1000 Ml) 1,000 mls @ 125 mls/hr IV .Q8H ROBERT Insulin Aspart (Novolog) 0 unit SC ACHS ROBERT; Protocol Last Admin: 03/22/18 07:45 Dose: Not Given Metoprolol Tartrate (Lopressor) 25 mg PO BID ROBERT Last Admin: 03/22/18 09:11 Dose: 25 mg Morphine Sulfate (Morphine) 2 mg IVP Q6 PRN PRN Reason: Pain, moderate (4-7) Last Admin: 03/22/18 10:38 Dose: 2 mg Ticagrelor (Brilinta) 90 mg PO Q12H ROBERT Last Admin: 03/22/18 10:44 Dose: 90 mg Zolpidem Tartrate (Ambien) 5 mg PO HS PRN PRN Reason: Insomnia Last Admin: 03/21/18 22:01 Dose: 5 mg - Labs Labs: 03/22/18 04:48 03/22/18 04:48 PT 11.4 SECONDS (9.7-12.2) 03/21/18 11:44 INR 1.0 03/21/18 11:44 APTT 57 SECONDS (21-34) H 03/22/18 04:48 - Constitutional Appears: No Acute Distress - Head Exam Head Exam: ATRAUMATIC, NORMOCEPHALIC - Eye Exam Eye Exam: EOMI - ENT Exam ENT Exam: Mucous Membranes Moist - Neck Exam Neck Exam: Full ROM - Respiratory Exam Respiratory Exam: Clear to Ausculation Bilateral, NORMAL BREATHING PATTERN. absent: Accessory Muscle Use, Respiratory Distress - Cardiovascular Exam Cardiovascular Exam: RRR, +S1, +S2. absent: Diastolic murmur, Murmur - GI/Abdominal Exam GI & Abdominal Exam: Soft, Normal Bowel Sounds. absent: Tenderness - Extremities Exam Extremities Exam: Full ROM, Normal Inspection. absent: Calf Tenderness, Pedal Edema - Neurological Exam Neurological Exam: Alert, Awake, Oriented x3 - Psychiatric Exam Psychiatric exam: Normal Affect, Normal Mood - Skin Skin Exam: Dry, Normal Color, Warm Assessment and Plan - Assessment and Plan (Free Text) Assessment: NSTEMI CAD ACS Chest pain DM Plan: NSTEMI Troponin: 0.092, 0.14, 0.176 EKG: shows no signs of ST or T wave abnormalities Cardiac cath today, shows diffuse disease of multiple lesions of the Left main, triple vessel disease and RCA, pt would benefit from CABG, will work to transfer pt to [facility] Medications ASA Brilinta Heprain 25,000 Metoprolol Pt seen, examined, assessment and plan discussed with Dr Iraj Jones PGY1, Internal Medicine Resident
--- NOTE | 2018-03-22 11:02 | CARD ---
APPROVED REPORT Date of service: 03/21/2018 EKG Measurement Heart [id number] <Conclusion> Normal sinus rhythm Possible Anterior infarct, age undetermined Abnormal ECG
--- NOTE | 2018-03-22 11:02 | CARD ---
APPROVED REPORT Date of service: 03/21/2018 EKG Measurement Heart [id number] <Conclusion> Normal sinus rhythm Left axis deviation Anteroseptal infarct, age undetermined Abnormal ECG
[2018-03-22] MEDS: Dextrose 5%/0.45% NS 1,000 ML IV SCH ×2 (11:05→19:11)
[2018-03-22] MEDS ORDERED: Verapamil 2 ML ONE (12:00)
[2018-03-22] MEDS ORDERED: Midazolam 2 MG/2 ML VIAL ONE ×2 (13:30→13:43)
--- NOTE | 2018-03-22 14:52 | VASCLAB ---
Date of service: 03/22/2018 PROCEDURE: Lower Extremity Venous Duplex Exam. HISTORY: LE pain PRIORS: None. TECHNIQUE: Bilateral common femoral, femoral, popliteal and posterior tibial, peroneal and great saphenous veins were evaluated. Flow was assessed with color Doppler, compressibility, assessment of phasic flow and augmentation response. Report prepared by ELIO Kiser FINDINGS: RIGHT: 1. Common Femoral Vein: 1.1. Compressibility - Fully compressible: Thrombus - None : Flow - Phasic: Augmentation -Normal: Reflux - None. 2. Femoral Vein: 2.1. Compressibility - Fully compressible: Thrombus - None : Flow - Phasic: Augmentation -Normal: Reflux - None. 3. Popliteal Vein: 3.1. Compressibility - Fully compressible: Thrombus - None : Flow - Phasic: Augmentation -Normal: Reflux - None. 4. Posterior Tibial Vein: 4.1. Compressibility - Fully compressible: Thrombus - None: Flow - Phasic: Augmentation -Normal: Reflux - None. 5. Peroneal Vein: 5.1. Compressibility - Fully compressible: Thrombus - None: Flow - Phasic: Augmentation -Normal: Reflux - None. 6. Great Saphenous Vein: 6.1. Compressibility - Fully compressible: Thrombus - None: Flow - Phasic: Augmentation - Normal: Reflux - None. LEFT: 1. Common Femoral Vein: 1.1. Compressibility - Fully compressible: Thrombus - None: Flow - Phasic: Augmentation -Normal: Reflux - None. 2. Femoral Vein: 2.1. Compressibility - Fully compressible: Thrombus - None: Flow - Phasic: Augmentation -Normal: Reflux - None. 3. Popliteal Vein: 3.1. Compressibility - Fully compressible: Thrombus - None : Flow - Phasic: Augmentation -Normal: Reflux - None. 4. Posterior Tibial Vein: 4.1. Compressibility - Fully compressible: Thrombus - None: Flow - Phasic: Augmentation -Normal: Reflux - None. 5. Peroneal Vein: 5.1. Compressibility - Fully compressible: Thrombus - None: Flow - Phasic: Augmentation -Normal: Reflux - None. 6. Great Saphenous Vein: 6.1. Compressibility - Fully compressible: Thrombus - None: Flow - Phasic: Augmentation - Normal: Reflux - None. OTHER FINDINGS: Right: None significant. Left: None significant. IMPRESSION: Right: No evidence of deep or superficial vein thrombosis of the right lower extremity. Normal valve function noted of the right side. Left: No evidence of deep or superficial vein thrombosis of the left lower extremity. Normal valve function noted of the left side.
[2018-03-22 17:35] LABS: CK-MB 0.29 ng/mL (0.0-3.38); TROPONIN I 0.093 ng/mL (0.00-0.120)
--- NOTE | 2018-03-23 01:44 | CARDCATH ---
PROCEDURE DATE: 03/22/2018 INDICATION: Ms. Janay Mariano is a 57-year-old female, presented with complaints of chest pain, was ruled in for acute coronary syndrome with non-STEMI, was subsequently admitted to ICU, on IV Heparin, IV nitroglycerin. The patient also has history of diabetes and was brought to the [facility] for evaluation of non-ST elevation CA. PROCEDURE PERFORMED: Left heart catheterization with selective left and right coronary angiogram, left ventriculogram, 6-Pashto right femoral arterial access. Mynx closure device for hemostasis. ANGIOGRAPHIC FINDINGS: Left main is a large-sized vessel bifurcates into left anterior descending and left circumflex coronary artery. Distal left main has nonobstructive 40% stenosis. Left LAD has multiple tandem lesions in the mid segment, 70% to 80% stenosis, gives off two medium sized diagonal branches. Left circumflex runs in the groove with the proximal stenosis, nonobstructive, 40%. RCA is a large-sized vessel, has a proximal 80% stenosis, and a mid 50% stenosis. Left ventricular ejection fraction is normal. IMPRESSION: Severe triple vessel coronary artery disease, diffuse left anterior descending disease with multiple tandem RCA lesions with moderate left circumflex disease. RECOMMENDATIONS: The patient is to undergo evaluation by CT Surgery for CABG. I informed Dr. Alejandro who is talking with for further evaluation and treatment for possible transfer for CABG. Rafael Galo MD
[2018-03-23 05:29] VITALS: TEMP 98.4
[2018-03-23 05:55] LABS: BASO % 0.9 % (0.0-2.0); EOS # 0.2 K/uL (0.0-0.7); EOS % 6.7 % (0.0-4.0); HEMOGLOBIN 14.4 g/dL (11.0-16.0); LYMPH # 1.7 K/uL (1.0-4.3); LYMPH % 49.4 % (20.0-40.0); MEAN CELL VOLUME 83.7 fL (81.0-99.0); MEAN CORPUSCULAR HEMOGLOBIN 26.9 pg (27.0-31.0); MEAN CORPUSCULAR HGB CONC 32.2 g/dL (33.0-37.0); MONO # 0.3 K/uL (0.0-0.8); MONO % 9.5 % (0.0-10.0); NEUT # 1.2 K/uL (1.8-7.0); NEUT % 33.5 % (50.0-75.0); NRBC % 0.2 % (0.0-2.0); RBC 5.34 Mil/uL (3.80-5.20); RED CELL DISTRIBUTION WIDTH 12.6 % (11.5-14.5); WHITE BLOOD COUNT 3.5 K/uL (4.8-10.8)
[2018-03-23 06:25] LABS: ALB/GLOB RATIO 1.3 (1.0-2.1); ALBUMIN 3.8 g/dL (3.5-5.0); ALT/SGPT 17 U/L (9-52); AST/SGOT 26 U/L (14-36); BLOOD UREA NITROGEN 15 mg/dL (7-17); GFR NON-AFRICAN AMERICAN > 60
[2018-03-23] MEDS: Heparin25000 units/250ml 1/2NS 25,000 UNITS/250 ML BAG IV PRN (06:48)
[2018-03-23] MEDS: (Novolog) Insulin Aspart, Recombinant 100 u/ml 10 ml vial SC SCH ×3 (08:01→17:42)
[2018-03-23] MEDS ORDERED: Aluminum Hydroxide/Magnesium Hydroxide Susp (30 mL) PO ONE (10:42)
[2018-03-23] MEDS ORDERED: Nitroglycerin 50mg in D5W 50 MG/250 ML BOTTLE IV SCH (10:45)
--- NOTE | 2018-03-23 13:53 | CP.PCM.DIS ---
Provider - Provider Date of Admission: 03/21/18 17:11 Attending physician: Elma Alejandro MD Consults: 03/20/18 18:24 Cardiology Consult Routine Comment: Consulting Provider: Rafael Galo Consulting Physician: Rafael Galo Reason for Consult: chest pain Time Spent in preparation of Discharge (in minutes): 35 Hospital Course - Lab Results Lab Results: Micro Results 03/21/18 13:38 Naris MRSA Culture (Admit) - Final MRSA NOT DETECTED Most Recent Lab Values WBC 3.5 K/uL (4.8-10.8) L 03/23/18 05:47 RBC 5.34 Mil/uL (3.80-5.20) H 03/23/18 05:47 Hgb 14.4 g/dL (11.0-16.0) 03/23/18 05:47 Hct 44.7 % (34.0-47.0) 03/23/18 05:47 MCV 83.7 fL (81.0-99.0) 03/23/18 05:47 MCH 26.9 pg (27.0-31.0) L 03/23/18 05:47 MCHC 32.2 g/dL (33.0-37.0) L 03/23/18 05:47 RDW 12.6 % (11.5-14.5) 03/23/18 05:47 Plt Count 215 K/uL (130-400) 03/23/18 05:47 MPV 8.0 fL (7.2-11.7) 03/23/18 05:47 Neut % (Auto) 33.5 % (50.0-75.0) L 03/23/18 05:47 Lymph % (Auto) 49.4 % (20.0-40.0) H 03/23/18 05:47 [place] % (Auto) 9.5 % (0.0-10.0) 03/23/18 05:47 Eos % (Auto) 6.7 % (0.0-4.0) H 03/23/18 05:47 Baso % (Auto) 0.9 % (0.0-2.0) 03/23/18 05:47 Neut # (Auto) 1.2 K/uL (1.8-7.0) L 03/23/18 05:47 Lymph # (Auto) 1.7 K/uL (1.0-4.3) 03/23/18 05:47 [place] # (Auto) 0.3 K/uL (0.0-0.8) 03/23/18 05:47 Eos # (Auto) 0.2 K/uL (0.0-0.7) 03/23/18 05:47 Baso # (Auto) 0.0 K/uL (0.0-0.2) 03/23/18 05:47 PT 11.4 SECONDS (9.7-12.2) 03/21/18 11:44 INR 1.0 03/21/18 11:44 APTT 54 SECONDS (21-34) H 03/23/18 05:47 D-Dimer, Quantitative < 200 ng/mlDDU (0-243) 03/21/18 11:44 Sodium 136 mmol/L (132-148) 03/23/18 05:47 Potassium 4.4 mmol/L (3.6-5.2) 03/23/18 05:47 Chloride 105 mmol/L (98-107) 03/23/18 05:47 Carbon Dioxide 24 mmol/L (22-30) 03/23/18 05:47 Anion Gap 11 (10-20) 03/23/18 05:47 BUN 15 mg/dL (7-17) 03/23/18 05:47 Creatinine 0.8 mg/dL (0.7-1.2) 03/23/18 05:47 Est GFR ( Amer) > 60 03/23/18 05:47 Est GFR (Non-Af Amer) > 60 03/23/18 05:47 POC Glucose (mg/dL) 231 mg/dL (65-110) H 03/23/18 11:30 Random Glucose 190 mg/dL (65-105) H 03/23/18 05:47 Hemoglobin A1c 11.6 % (4.2-6.5) H 03/22/18 15:04 Calcium 9.0 mg/dl (8.6-10.4) 03/23/18 05:47 Phosphorus 3.9 mg/dL (2.5-4.5) 03/23/18 05:47 Magnesium 2.0 mg/dL (1.6-2.3) 03/23/18 05:47 Total Bilirubin 0.6 mg/dL (0.2-1.3) 03/23/18 05:47 AST 26 U/L (14-36) 03/23/18 05:47 ALT 17 U/L (9-52) 03/23/18 05:47 Alkaline Phosphatase 78 U/L (38-126) 03/23/18 05:47 Total Creatine Kinase 47 U/L (30-135) 03/22/18 17:08 CK-MB (Mass) 0.29 ng/mL (0.0-3.38) 03/22/18 17:08 Troponin I 0.0930 ng/mL (0.00-0.120) 03/22/18 17:08 NT-Pro-B Natriuret Pep 201 pg/mL (0-900) 03/21/18 11:01 Total Protein 6.7 g/dL (6.3-8.3) 03/23/18 05:47 Albumin 3.8 g/dL (3.5-5.0) 03/23/18 05:47 Globulin 2.9 gm/dL (2.2-3.9) 03/23/18 05:47 Albumin/Globulin Ratio 1.3 (1.0-2.1) 03/23/18 05:47 Lipase 39 U/L (23-300) 03/20/18 14:13 Urine Color Yellow (YELLOW) 03/20/18 15:04 Urine Clarity Hazy (Clear) 03/20/18 15:04 Urine pH 7.0 (5.0-8.0) 03/20/18 15:04 Ur Specific [place] 1.026 (1.003-1.030) 03/20/18 15:04 Urine Protein Negative mg/dL (NEGATIVE) 03/20/18 15:04 Urine Glucose (UA) 3+ mg/dL (Normal) H 03/20/18 15:04 Urine Ketones Negative mg/dL (NEGATIVE) 03/20/18 15:04 Urine Blood Negative (NEGATIVE) 03/20/18 15:04 Urine Nitrate Negative (NEGATIVE) 03/20/18 15:04 Urine Bilirubin Negative (NEGATIVE) 03/20/18 15:04 Urine Urobilinogen Normal mg/dL (0.2-1.0) 03/20/18 15:04 Ur Leukocyte Esterase 3+ [place]rie[place]/uL (Negative) H 03/20/18 15:04 Urine WBC (Auto) 21 /hpf (0-5) H 03/20/18 15:04 Urine RBC (Auto) 10 /hpf (0-3) H 03/20/18 15:04 Ur Squamous Epith Cells 18 /hpf (0-5) H 03/20/18 15:04 Urine Bacteria Rare (<OCC) 03/20/18 15:04 Urine Opiates Screen Positive (NEGATIVE) H 03/21/18 12:32 Urine Methadone Screen Negative (NEGATIVE) 03/21/18 12:32 Ur Barbiturates Screen Negative (NEGATIVE) 03/21/18 12:32 Ur Phencyclidine Scrn Negative (NEGATIVE) 03/21/18 12:32 Ur Amphetamines Screen Negative (NEGATIVE) 03/21/18 12:32 U Benzodiazepines Scrn Negative (NEGATIVE) 03/21/18 12:32 U Oth Cocaine Metabols Negative (NEGATIVE) 03/21/18 12:32 U Cannabinoids Screen Negative (NEGATIVE) 03/21/18 12:32 - Hospital Course Hospital Course: Patient was admitted with chest pain and underwent cardiac catheterization for positive troponin. Patient is found to have diffuse LAD disease and is recommended to have single-vessel CABG. Patient is being transferred to [facility] for CABG Discharge Exam - Head Exam Head Exam: ATRAUMATIC, NORMOCEPHALIC Discharge Plan - Follow Up Plan Condition: STABLE Disposition: HOME/ ROUTINE Instructions: Heart Healthy Diet, Heart Attack (DC), Coronary Artery Bypass Grafting (DC), Heparin Additional Instructions: 03/23/18 16:[address] [facility] FOR FURTHER MANAGEMENT.
--- NOTE | 2018-03-23 14:23 | CP.PCM.PN ---
Subjective - Date & Time of Evaluation Date of Evaluation: 03/23/18 Time of Evaluation: 14:23 - Subjective Subjective: Patient seen and examined at bedside. Patient c/o chest pain, reproducible, improved with maalox, no fever, no headaches Objective - Vital Signs/Intake and Output Vital Signs (last 24 hours): Temp Pulse Resp BP Pulse Ox 98.4 F 68 11 L 130/54 L 96 03/23/18 04:00 03/23/18 11:22 03/23/18 11:22 03/23/18 11:22 03/23/18 11:22 Intake and Output: 03/23/18 03/23/18 06:59 18:59 Intake Total 815.9 457.6 Output Total 900 310 Balance -84.1 147.6 - Medications Medications: Current Medications Aspirin (Ecotrin) 81 mg PO DAILY [facility] Last Admin: 03/23/18 09:42 Dose: 81 mg Dextrose (Glutose 15) 0 gm PO ONCE PRN; Protocol PRN Reason: Hypoglycemia Protocol Dextrose (Dextrose 50% Inj) 0 ml IV STAT PRN; Protocol PRN Reason: Hypoglycemia Protocol Famotidine (Pepcid) 20 mg PO DAILY [facility] Last Admin: 03/23/18 09:43 Dose: 20 mg Glucagon (Glucagen Diagnostic Kit) 0 mg IM STAT PRN; Protocol PRN Reason: Hypoglycemia Protocol Dextrose (Dextrose 5% In Water 1000 Ml) 1,000 mls @ 0 mls/hr IV .Q0M PRN; Protocol PRN Reason: Hypoglycemia Protocol Heparin Sodium/Sodium Chloride (Heparin 14403 Units/250ml 1/2 Normal Saline) 25,000 units in 250 mls @ 9.253 mls/hr IV .Q24H PRN; Protocol PRN Reason: PROTOCOL Last Admin: 03/23/18 06:48 Dose: 9 units/kg/hr, 6.94 mls/hr Ceftriaxone Sodium 1 gm/ (Sodium Chloride) 100 mls @ 100 mls/hr IVPB DAILY [facility]; Protocol Last Admin: 03/23/18 09:43 Dose: 100 mls/hr Nitroglycerin/Dextrose (Nitroglycerin 50 Mg/250 Ml D5w) 50 mg in 250 mls @ 1.5 mls/hr IV .Q24H ROBERT; Protocol Insulin Aspart (Novolog) 0 unit SC ACHS ROBERT; Protocol Last Admin: 03/23/18 11:46 Dose: 3 u Metoprolol Tartrate (Lopressor) 25 mg PO BID [facility] Last Admin: 03/23/18 09:41 Dose: 25 mg Morphine Sulfate (Morphine) 2 mg IVP Q6 PRN PRN Reason: Pain, moderate (4-7) Last Admin: 03/23/18 08:03 Dose: 2 mg Zolpidem Tartrate (Ambien) 5 mg PO HS PRN PRN Reason: Insomnia Last Admin: 03/22/18 21:28 Dose: 5 mg - Labs Labs: 03/23/18 05:47 03/23/18 05:47 PT 11.4 SECONDS (9.7-12.2) 03/21/18 11:44 INR 1.0 03/21/18 11:44 APTT 54 SECONDS (21-34) H 03/23/18 05:47 - Constitutional Appears: Well, Non-toxic - Head Exam Head Exam: ATRAUMATIC, NORMAL INSPECTION - Eye Exam Eye Exam: EOMI Pupil Exam: NORMAL ACCOMODATION, PERRL - ENT Exam ENT Exam: Mucous Membranes Moist - Neck Exam Neck Exam: Full ROM - Respiratory Exam Respiratory Exam: Clear to Ausculation Bilateral. absent: Prolonged Expiratory Phase, Rhonchi, Wheezes, Respiratory Distress - Cardiovascular Exam Cardiovascular Exam: REGULAR RHYTHM, +S1, +S2, Murmur - GI/Abdominal Exam GI & Abdominal Exam: Soft, Normal Bowel Sounds. absent: Tenderness - Extremities Exam Extremities Exam: Full ROM, Normal Inspection. absent: Pedal Edema - Neurological Exam Neurological Exam: Alert, Awake, Oriented x3 Assessment and Plan - Assessment and Plan (Free Text) Assessment: 57F w PMhx of DM, admitted for Chest pain, found to have triple vessel disease, will require CABG, likely Sunday/Sunday/ w. Dr. Whitten at [facility]. Plan: Neuo - A&O X3 -Myocardial infarction: continue antiplatelet therapy as per cardiology GI - Diabetic diet Renal - BUN/Cr - wnl, continue to monitor -h/o uncontrolled Blood sugar c/w high HBA1c continue dvt/pud ppx Patient awaiting transfer to [facility] for [place] Patient remains hemodynamically stable
[2018-03-23 20:08] VITALS: BP 155/84; PULSE 83; RESP 19; O2SAT 96
--- NOTE | 2018-03-25 09:42 | CARD ---
APPROVED REPORT Date of service: 03/22/2018 EKG Measurement Heart [id number] <Conclusion> Normal sinus rhythm Anteroseptal infarct, age undetermined Abnormal ECG
== END 2018-03-23 18:50 | disposition short-term general hospital (02) | DRG 190 ==
LOC: C.ER 13:22 → C.6T 16:36 → C.9I 03-21 12:24 → OBSVTOIN 03-21 17:11
PROVIDERS: ADMIT Internal Medicine Critical Care Medicine; ATTEND Internal Medicine Critical Care Medicine
PROC: 4A023N7 Measurement of Cardiac Sampling and Pressure, Left Heart, Percutaneous Approach (ICD-10-PCS; principal; 2018-03-22)
PROC: B2111ZZ Fluoroscopy of Multiple Coronary Arteries using Low Osmolar Contrast (ICD-10-PCS; 2018-03-22)
PROC: B2161ZZ Fluoroscopy of Right and Left Heart using Low Osmolar Contrast (ICD-10-PCS; 2018-03-22)
DX: I21.4 Non-ST elevation (NSTEMI) myocardial infarction (principal); E11.9 Type 2 diabetes mellitus without complications; I10 Essential (primary) hypertension; I25.10 Atherosclerotic heart disease of native coronary artery without angina pectoris; F32.9 Major depressive disorder, single episode, unspecified; F41.9 Anxiety disorder, unspecified; E78.00 Pure hypercholesterolemia, unspecified; Z79.4 Long term (current) use of insulin; Z87.891 Personal history of nicotine dependence